=== PATIENT | male | born 1945 | race Caucasian/White ===

== ENCOUNTER → 2016-03-13 | Outpatient (CLI) | payer MEDICARE ==
--- NOTE | 2016-03-13 17:06 | REP ---
LEFT RIB SERIES: Five views of the left ribs are performed. No fracture or bone lesion is seen. Visualized left lung appears unremarkable. There are mild degenerative changes at the left shoulder. IMPRESSION: Negative left rib series.
== END ==
LOC: M CLY 13:07
PROVIDERS: ATTEND Family Medicine
DX: J45.40 Moderate persistent asthma, uncomplicated (principal); Z79.82 Long term (current) use of aspirin; Z79.899 Other long term (current) drug therapy; R23.8 Other skin changes

== ENCOUNTER → 2016-03-13 | Outpatient (REF) | payer MEDICARE ==
[2016-03-13 18:24] LABS: BASO % 0.4 % (0.0-1.0); EOS # 0.4 K/mm3 (0.0-0.50); EOS % 4.5 % (0.0-3.0); LARGE UNSTAINED CELL # 0.1 K/mm3 (0.0-0.4); LARGE UNSTAINED CELL % 1.3 % (0.0-4.0); LYMPH # 1.7 K/mm3 (1.5-4.5); MEAN CORPUSCULAR HEMOGLOBIN 33.5 pg (27.0-33.0); MEAN CORPUSCULAR VOLUME 95.7 fl (80.0-96.0); MONO # 0.5 K/mm3 (0.0-0.8); MONO % 6.4 % (0.0-5.0); NEUTROPHILS # 5.3 K/mm3 (1.8-7.7); NEUTROPHILS % 66.5 % (36.0-66.0); PLATELET COUNT, AUTOMATED 185 k/mm3 (150-450); RED CELL DISTRIBUTION WIDTH 12.5 % (11.5-14.5)
[2016-03-13 18:34] LABS: ANION GAP 10 MEQ/L (8-16); BLOOD UREA NITROGEN 14 MG/DL (7-18); CALCIUM LEVEL 8.6 MG/DL (8.8-10.2); CARBON DIOXIDE LEVEL 30 MEQ/L (21-32); CHLORIDE LEVEL 101 MEQ/L (98-107); CREATININE FOR GFR 0.98 MG/DL (0.70-1.30); GLOMERULAR FILTRATION RATE > 60.0 (>42); GLUCOSE, FASTING 117 MG/DL (83-110); POTASSIUM SERUM 4.1 MEQ/L (3.5-5.1); SODIUM LEVEL 141 MEQ/L (136-145)
[2016-03-13 18:36] LABS: INR 1.2
== END ==
LOC: M SFHCCLAY 11:33
PROVIDERS: ATTEND Family Medicine
DX: J45.40 Moderate persistent asthma, uncomplicated (principal); R23.8 Other skin changes; Z79.82 Long term (current) use of aspirin; Z79.899 Other long term (current) drug therapy

== ENCOUNTER → 2016-07-10 | Outpatient (CLI) | payer MEDICARE ==
--- NOTE | 2016-07-10 15:10 | REP ---
LEFT HIP, TWO VIEWS: HISTORY: Pain/ COMPARISON: 07/02/2011 There is no acute fracture or dislocation. There is narrowing of the joint space with associated osteophyte formation. A calcified density is present lateral to the inferior pubic ramus. This represents ligamentous or tendon calcification. IMPRESSION: Degenerative change as described above.
== END ==
LOC: M CLY 14:07
PROVIDERS: ATTEND Family Medicine
DX: M16.12 Unilateral primary osteoarthritis, left hip (principal); M25.552 Pain in left hip; N62 Hypertrophy of breast; M54.42 Lumbago with sciatica, left side; Z79.82 Long term (current) use of aspirin; Z79.899 Other long term (current) drug therapy

== ENCOUNTER → 2016-07-10 | Outpatient (REF) | payer MEDICARE ==
[2016-07-10 20:15] LABS: PROLACTIN 6.5 NG/ML (2.1-17.7)
== END ==
LOC: M SFHCCLAY 13:47
PROVIDERS: ATTEND Family Medicine
DX: N62 Hypertrophy of breast (principal); Z79.899 Other long term (current) drug therapy

== ENCOUNTER → 2016-07-11 | Outpatient (CLI) | payer MEDICARE ==
--- NOTE | 2016-07-11 16:00 | REP ---
MR LUMBAR SPINE WITHOUT CONTRAST: HISTORY: Back and left hip pain. Decreased signal intensity on T2-weighted images is present in the lumbar intervertebral discs. The discs are decreased in height. These findings are consistent with disc degeneration. There is no disc bulge or herniation at the L1-2 level. The L1 nerves exit the neural foramina without compression. A diffuse disc bulge is present at the L2-3 level. There is minimal compression of the thecal sac. There is hypertrophy of the posterior articulating facets. The L2 nerves exit the neural foramina without compression. A diffuse disc bugle is present at the L3-4 level. There is minimal compression of the thecal sac. There is hypertrophy of the posterior articulating facets. The L3 nerves exit the neural foramina without compression. A diffuse disc bulge asymmetric to the left is present at the L4-5 level. There is minimal compression of the thecal sac. There is hypertrophy of the posterior articulating facets. There is compression of the L4 nerves in the neural foramina. A diffuse disc bulge is present at the L5-S1 level. There is minimal compression of the thecal sac. There is hypertrophy of the posterior articulating facets. There is compression of the L5 nerves in the neural foramina. The conus medullaris is normal in appearance terminating at the level of the T12-L1 intervertebral disc. Increased signal intensity on T2-weighted images is present in the endplates of the L3-5 vertebral bodies. This represents degenerative change. IMPRESSION: Diffuse disc bulges at the L2-3 through L5-S1 levels with minimal thecal sac compression. There is compression of the L4 and 5 nerves in the neural foramina. Signed by Sriram Mahan MD 07/11/2016 04:02 P
== END ==
LOC: M RAD 14:19
PROVIDERS: ATTEND Family Medicine
DX: M54.5 Low back pain (principal)

== ENCOUNTER → 2016-07-12 | Outpatient (CLI) | payer MEDICARE ==
--- NOTE | 2016-07-12 13:15 | REP ---
BILATERAL MAMMOGRAM WITH DIAGNOSTIC MAMMOGRAM LEFT BREAST: Bilateral mammography performed in the MLO and CC projections. There is pain and palpable abnormality in the left retroareolar region. Mild asymmetric fibroglandular tissue is seen in the left retroareolar region compatible with mild gynecomastia. No suspicious mass or clustered microcalcifications are seen. IMPRESSION: ACR 2 benign. Mild gynecomastia left retroareolar region without suspicious mass or clustered microcalcifications. Clinical correlation and followup recommended. ACR 2 benign. BI-RADS/ACR category 2 mammogram. Benign finding(s). Routine annual screening mammography (for women over age 40). This mammogram was interpreted with the aid of an FDA-approved computer-aided detection system. A. Negative x-ray reports should not delay biopsy if a dominant or clinically suspicious mass is present. B. Four to eight percent of cancers are not identified by x-ray. C. Adenosis and dense breasts may obscure an underlying neoplasm. The patient states she had a clinical breast exam in July 2016. The patient letter being requested is M2. Signed by Tucker Gonzalez MD 07/13/2016 05:12 P
== END ==
LOC: M RAD 11:53
PROVIDERS: ATTEND Family Medicine
DX: N62 Hypertrophy of breast (principal)

== ENCOUNTER 2016-07-26 12:59 | Emergency (ER) | payer MEDICARE ==
[~2016-07-26] VITALS: Ht 170.2 cm; Wt 106.6 kg
[2016-07-26] MEDS ORDERED: LATA5OPD (13:09)
[2016-07-26] MEDS ORDERED: LOSA100T36 (13:09)
[2016-07-26] MEDS ORDERED: ETOD400T (13:09)
[2016-07-26] MEDS ORDERED: HYDR25TA6 (13:09)
[2016-07-26] MEDS ORDERED: ATOR1TAB21 (13:09)
[2016-07-26] MEDS ORDERED: ESCI20TA (13:09)
[2016-07-26] MEDS ORDERED: AMLO5TAB2 (13:09)
[2016-07-26] MEDS ORDERED: TRIMETHOBENZAMIDE HCL INJ 200 MG/2 ML VIAL (J3250) IM ONE (13:45)
[2016-07-26] MEDS ORDERED: KETOROLAC 30 MG/ML VIAL (J1885) IV ONE (13:45)
[2016-07-26] MEDS ORDERED: GASTROGRAFIN SOLUTION 30ML (Q9963) As Ordered ONE (14:02)
[2016-07-26 14:53] LABS: BASO # 0.1 K/mm3 (0.0-0.2); BASO % 0.7 % (0.0-1.0); EOS # 0.1 K/mm3 (0.0-0.50); EOS % 1.6 % (0.0-3.0); LARGE UNSTAINED CELL # 0.1 K/mm3 (0.0-0.4); LARGE UNSTAINED CELL % 0.9 % (0.0-4.0); LYMPH # 1.3 K/mm3 (1.5-4.5); LYMPH % 14.3 % (24.0-44.0); MEAN CORPUSCULAR HEMOGLOBIN 32.4 pg (27.0-33.0); MEAN CORPUSCULAR HGB CONC 33.7 g/dl (32.0-36.5); MEAN CORPUSCULAR VOLUME 96.2 fl (80.0-96.0); MONO # 0.5 K/mm3 (0.0-0.8); MONO % 5.3 % (0.0-5.0); NEUTROPHILS # 6.8 K/mm3 (1.8-7.7); NEUTROPHILS % 77.1 % (36.0-66.0); PLATELET COUNT, AUTOMATED 163 k/mm3 (150-450); RED CELL DISTRIBUTION WIDTH 13.2 % (11.5-14.5); WHITE BLOOD COUNT 8.8 K/mm3 (4.0-10.0)
[2016-07-26 15:17] LABS: ALBUMIN 3.7 GM/DL (3.2-5.2); ALBUMIN/GLOBULIN RATIO 1.23 (1.00-1.93); ALKALINE PHOSPHATASE 81 U/L (45-117); ALT/SGPT 44 U/L (12-78); AMYLASE 45 U/L (25-115); ANION GAP 6 MEQ/L (8-16); AST/SGOT 34 U/L (15-37); BILIRUBIN,DIRECT 0.3 MG/DL (0.0-0.2); BILIRUBIN,TOTAL 0.9 MG/DL (0.2-1.0); BLOOD UREA NITROGEN 19 MG/DL (7-18); CALCIUM LEVEL 8.5 MG/DL (8.8-10.2); CARBON DIOXIDE LEVEL 29 MEQ/L (21-32); CHLORIDE LEVEL 104 MEQ/L (98-107); CREATININE FOR GFR 0.89 MG/DL (0.70-1.30); GLOMERULAR FILTRATION RATE > 60.0 (>42); GLUCOSE, FASTING 114 MG/DL (83-110); POTASSIUM SERUM 3.9 MEQ/L (3.5-5.1); SODIUM LEVEL 139 MEQ/L (136-145); TOTAL PROTEIN 6.7 GM/DL (6.4-8.2)
[2016-07-26] MEDS ORDERED: ISOVUE-370 76% 100ML VIAL (Q9967) As Ordered ONE (15:33)
--- NOTE | 2016-07-26 16:30 | REP ---
Clinical: Right-sided abdominal pain. Technique: Axial contrast enhanced images from the lung bases to the pubic symphysis using oral and 100 ml Isovue 370 intravenous contrast material with coronal and sagittal re-formations. Findings: Lung bases are clear. Visualized heart and pericardium normal. Fatty infiltration to the liver is appreciated with 3 cm hypodensity along the posterior margin of the right lobe (image 31) which may represent cyst. Spleen, pancreas, gallbladder, bilateral adrenal glands are normal. The kidneys demonstrate small bilateral parapelvic and cortical cysts. The enteric system is without obstruction or acute inflammatory process. Scattered diverticulosis noted without acute diverticulitis. Normal terminal ileum and appendix identified in the right lower quadrant. Pelvis demonstrates normal bladder and mildly prominent prostate gland measuring approximately 4.5 cm maximal transverse diameter. Small fat containing right inguinal hernia noted. Musculoskeletal structures demonstrate age-related degenerative changes without focal osseous abnormality. Impression: 1. Fatty infiltration to the liver with 3 cm presumed hepatic cyst may be evaluated by ultrasound. 2. Diverticulosis without acute diverticulitis. 3. Mildly prominent prostate gland. 4. Degenerative changes the musculoskeletal structures. Signed by Deangelo Hyatt MD 07/26/2016 04:22 P
--- NOTE | 2016-07-26 17:40 | REP ---
Abdominal right upper quadrant ultrasound for right upper quadrant pain: There is no cholelithiasis, gallbladder wall thickening or pericholecystic fluid. There is a negative Valenzuela's sign to transducer pressure. There is no intrahepatic or extrahepatic biliary duct dilatation, the common duct is 4.3 mm diameter. The hepatic parenchyma is hyperechoic compatible with hepato steatosis. The liver is otherwise unremarkable except for a 4.1 cm cyst posteriorly in the right lobe. The pancreas is obscured by bowel gas and not visualized. The right kidney is normal size measuring 11.5 cm craniocaudad length. There is no right renal hydronephrosis, calculus or mass. There is a 1.2 cm right renal cyst. Impression: Hepato steatosis. No cholelithiasis or gallbladder wall thickening. No biliary duct dilatation. No ascites. Pancreas is obscured. Right renal cyst. Signed by Tucker Agarwal MD 07/26/2016 05:31 P
[2016-07-26] MEDS ORDERED: NORCOTAB PO (17:52)
[2016-07-26 18:13] VITALS: BP 186/100
== END 2016-07-26 18:40 | disposition home or self-care (01) ==
LOC: M ED 14:22
DX: N28.1 Cyst of kidney, acquired (principal); K76.0 Fatty (change of) liver, not elsewhere classified; K57.90 Diverticulosis of intestine, part unspecified, without perforation or abscess without bleeding; R10.31 Right lower quadrant pain; I10 Essential (primary) hypertension; F32.9 Major depressive disorder, single episode, unspecified; M48.00 Spinal stenosis, site unspecified; Z79.899 Other long term (current) drug therapy
CPT/HCPCS: 74177; 76705; 80048; 80076; 81001; 82150; 83605; 83690; 85025; 86140; 96372; 96374; 99283; J1885; J3250; Q9963; Q9967

== ENCOUNTER → 2016-08-15 | Outpatient (REF) | payer MEDICARE ==
[~2016-08-15] MED LIST: AMLO5TAB2; ATOR1TAB21; ESCI20TA; ETOD400T; HYDR25TA6; LATA5OPD; LOSA100T36; NORCOTAB PO
[2016-08-15 11:47] LABS: ALBUMIN 3.7 GM/DL (3.2-5.2); ALBUMIN/GLOBULIN RATIO 1.23 (1.00-1.93); ALKALINE PHOSPHATASE 85 U/L (45-117); ALT/SGPT 49 U/L (12-78); ANION GAP 7 MEQ/L (8-16); AST/SGOT 31 U/L (15-37); BILIRUBIN,TOTAL 0.9 MG/DL (0.2-1.0); BLOOD UREA NITROGEN 14 MG/DL (7-18); CALCIUM LEVEL 8.8 MG/DL (8.8-10.2); CARBON DIOXIDE LEVEL 29 MEQ/L (21-32); CHLORIDE LEVEL 104 MEQ/L (98-107); CHOLESTEROL LEVEL 161 MG/DL (<200); CREATININE FOR GFR 0.93 MG/DL (0.70-1.30); GLOMERULAR FILTRATION RATE > 60.0 (>42); GLUCOSE, FASTING 111 MG/DL (83-110); POTASSIUM SERUM 3.8 MEQ/L (3.5-5.1); SODIUM LEVEL 140 MEQ/L (136-145); TOTAL PROTEIN 6.7 GM/DL (6.4-8.2); TRIGLYCERIDES LEVEL 126 MG/DL (<150)
== END ==
LOC: M SFHCCLAY 08:07
PROVIDERS: ATTEND Family Medicine
DX: E78.00 Pure hypercholesterolemia, unspecified (principal)

== ENCOUNTER → 2017-10-30 | Outpatient (REF) | payer MEDICARE ==
[2017-10-30 11:32] LABS: HEMATOCRIT 44.1 % (42.0-52.0); HEMOGLOBIN 15.6 g/dl (13.5-17.5); MEAN CORPUSCULAR HEMOGLOBIN 33.3 pg (27.0-33.0); MEAN CORPUSCULAR HGB CONC 35.4 g/dl (32.0-36.5); MEAN CORPUSCULAR VOLUME 94.2 fl (80.0-96.0); PLATELET COUNT, AUTOMATED 173 10^3/uL (150-450); RED BLOOD COUNT 4.68 10^6/uL (4.30-6.10); RED CELL DISTRIBUTION WIDTH 12.5 % (11.5-14.5); WHITE BLOOD COUNT 6.6 10^3/uL (4.0-10.0)
[2017-10-30 12:24] LABS: ESTIMATED AVERAGE GLUCOSE 114 MG/DL (60-110); HEMOGLOBIN A1c 5.6 %
[2017-10-30 12:25] LABS: ALKALINE PHOSPHATASE 86 U/L (45-117); ALT/SGPT 43 U/L (12-78); AST/SGOT 27 U/L (7-37); BILIRUBIN,TOTAL 0.7 MG/DL (0.2-1.0); BLOOD UREA NITROGEN 20 MG/DL (7-18); CALCIUM LEVEL 8.7 MG/DL (8.8-10.2); CHLORIDE LEVEL 103 MEQ/L (98-107); CHOLESTEROL LEVEL 159 MG/DL (<200); CREATININE FOR GFR 0.96 MG/DL (0.70-1.30); POTASSIUM SERUM 4.2 MEQ/L (3.5-5.1); SODIUM LEVEL 140 MEQ/L (136-145); TOTAL PROTEIN 6.8 GM/DL (6.4-8.2); TRIGLYCERIDES LEVEL 94 MG/DL (<150)
[2017-10-30 12:38] LABS: GLUCOSE, FASTING 122 MG/DL (70-100)
[2017-10-30 15:44] LABS: ANION GAP 7 MEQ/L (8-16); CARBON DIOXIDE LEVEL 30 MEQ/L (21-32); HDL CHOLESTEROL 58 MG/DL (>40); LDL CHOLESTEROL 82.2 MG/DL (<100); NON-HDL-C 101 MG/DL
[2017-10-30 15:45] LABS: ALBUMIN 3.6 GM/DL (3.2-5.2); ALBUMIN/GLOBULIN RATIO 1.13 (1.00-1.93); CHOLESTEROL RISK RATIO 2.741 (<5)
== END ==
LOC: M SFHCCLAY 09:17
DX: I10 Essential (primary) hypertension (principal); J45.40 Moderate persistent asthma, uncomplicated; G47.33 Obstructive sleep apnea (adult) (pediatric); I35.0 Nonrheumatic aortic (valve) stenosis
CPT/HCPCS: 84443

== ENCOUNTER → 2018-08-22 | Outpatient (CLI) | payer MEDICARE ==
[~2018-08-22] MED LIST changes: -AMLO5TAB2; +AMLO5TAB6; +HYDR-3715 PO; +LATA0.0013; -LATA5OPD; -LOSA100T36; +LOSA100T50; -NORCOTAB PO
--- NOTE | 2018-08-22 13:50 | REP ---
Left foot series: Four views. History: Pain in the left foot. Findings: Four views of the left foot demonstrate a moderate hallux valgus with mild osteoarthritic spurring. Mild spurring is seen at the first MTP joint as well. There is plantar calcaneal spurring. Vascular calcification is seen across the ankle in the anterior posterior tibial arteries. No acute bony abnormality is seen however. No fractures seen. Impression: Osteoarthritic changes in hallux valgus. Heel spurring and vascular calcification. No acute abnormality. Electronically Signed by Cesar Constantino MD 08/22/2018 01:42 P
--- NOTE | 2018-08-22 13:52 | REP ---
Right knee series: Five views. History: Pain in the right knee. Findings: Five views right knee demonstrate vascular calcification. There is patellofemoral narrowing and spurring. There is some dystrophic calcification at the posterior joint line on the lateral radiograph and I cannot exclude a small loose body. No bony erosive changes seen. There is no evidence of joint effusion. Impression: Mild osteoarthritic changes. Vascular calcification. Question posteromedial loose body. Electronically Signed by Cesar Constantino MD 08/22/2018 01:43 P
== END ==
LOC: M CLY 07:49
PROVIDERS: ATTEND Family Medicine
DX: M77.32 Calcaneal spur, left foot (principal); M19.072 Primary osteoarthritis, left ankle and foot; M17.11 Unilateral primary osteoarthritis, right knee

== ENCOUNTER → 2018-08-22 | Outpatient (REF) | payer MEDICARE ==
[2018-08-22 12:55] LABS: HEMOGLOBIN 15.5 g/dl (13.5-17.5); MEAN CORPUSCULAR HEMOGLOBIN 32.6 pg (27.0-33.0); MEAN CORPUSCULAR HGB CONC 34.4 g/dl (32.0-36.5); MEAN CORPUSCULAR VOLUME 94.7 fl (80.0-96.0); PLATELET COUNT, AUTOMATED 164 10^3/uL (150-450); RED BLOOD COUNT 4.75 10^6/uL (4.30-6.10); WHITE BLOOD COUNT 6.6 10^3/uL (4.0-10.0)
[2018-08-22 13:10] LABS: ALBUMIN 3.7 GM/DL (3.2-5.2); ALT/SGPT 40 U/L (12-78); BILIRUBIN,TOTAL 0.4 MG/DL (0.2-1.0); BLOOD UREA NITROGEN 16 MG/DL (7-18); CALCIUM LEVEL 8.7 MG/DL (8.8-10.2); CARBON DIOXIDE LEVEL 29 MEQ/L (21-32); CHLORIDE LEVEL 105 MEQ/L (98-107); CHOLESTEROL LEVEL 160 MG/DL (<200); CHOLESTEROL RISK RATIO 2.711 (<5); CREATININE FOR GFR 1.03 MG/DL (0.70-1.30); FREE T4 0.79 NG/DL (0.76-1.46); GLOMERULAR FILTRATION RATE > 60.0 (>42); GLUCOSE, FASTING 126 MG/DL (70-100); HDL CHOLESTEROL 59 MG/DL (>40); LDL CHOLESTEROL 82 MG/DL (<100); NON-HDL-C 101 MG/DL; POTASSIUM SERUM 4.1 MEQ/L (3.5-5.1); SODIUM LEVEL 139 MEQ/L (136-145); TOTAL PROTEIN 6.5 GM/DL (6.4-8.2); TRIGLYCERIDES LEVEL 95 MG/DL (<150)
== END ==
LOC: M SFHCCLAY 07:44
PROVIDERS: ATTEND Family Medicine
DX: I10 Essential (primary) hypertension (principal)

== ENCOUNTER → 2019-05-06 | Outpatient (REF) | payer MEDICARE ==
[2019-05-06 12:13] LABS: ALBUMIN 3.7 GM/DL (3.2-5.2); ALT/SGPT 36 U/L (12-78); BILIRUBIN,TOTAL 0.5 MG/DL (0.2-1.0); BLOOD UREA NITROGEN 23 MG/DL (7-18); CALCIUM LEVEL 8.9 MG/DL (8.8-10.2); CARBON DIOXIDE LEVEL 31 MEQ/L (21-32); CHLORIDE LEVEL 106 MEQ/L (98-107); CREATININE FOR GFR 1.12 MG/DL (0.70-1.30); FREE T4 0.85 NG/DL (0.76-1.46); GLOMERULAR FILTRATION RATE > 60.0 (>42); GLUCOSE, FASTING 120 MG/DL (70-100); POTASSIUM SERUM 3.5 MEQ/L (3.5-5.1); SODIUM LEVEL 142 MEQ/L (136-145); TOTAL PROTEIN 6.4 GM/DL (6.4-8.2)
[2019-05-06 12:34] LABS: HEMOGLOBIN A1c 5.8 %
== END ==
LOC: M SFHCCLAY 07:53
PROVIDERS: ATTEND Family Medicine
DX: R73.01 Impaired fasting glucose (principal); I10 Essential (primary) hypertension

== ENCOUNTER → 2019-12-21 | Outpatient (REF) | payer MEDICARE ==
[~2019-12-21] MED LIST changes: +AMLO1TAB24; -AMLO5TAB6
== END ==
LOC: M SFHCCLAY 12:44
PROVIDERS: ATTEND Physician Assistant
DX: R50.9 Fever, unspecified (principal); Z20.828 Contact with and (suspected) exposure to other viral communicable diseases

== ENCOUNTER → 2019-12-22 | Outpatient (CLI) | payer MEDICARE ==
--- NOTE | 2019-12-25 08:53 | REP ---
CHEST XRAY: 12/22/19 CLINICAL: Cough and hypoxemia. TECHNIQUE: PA and lateral. FINDINGS: Mediastinum and cardiac silhouette are normal. Lung ibrahim are clear. No consolidation, effusion, or pneumothorax. Skeletal structures are intact. IMPRESSION: Normal chest x-ray. No acute cardiopulmonary process or focal consolidation. MTDD
--- NOTE | 2019-12-25 08:55 | REP ---
LEFT RIB SERIES: 12/22/19 CLINICAL: Traumatic injury and tenderness. TECHNIQUE: Four oblique views of the left hemithorax. FINDINGS: The ribs appear intact and without evidence for acute fracture or obvious pathology. Underlying left hemithorax is clear. Degenerative changes to the left shoulder noted. IMPRESSION: Normal left ribs without evidence for acute injury. [facility]
== END ==
LOC: M CLY 10:55
PROVIDERS: ATTEND Physician Assistant
DX: R50.9 Fever, unspecified (principal); S29.9XXA Unspecified injury of thorax, initial encounter; X58.XXXA Exposure to other specified factors, initial encounter; Y92.9 Unspecified place or not applicable

== ENCOUNTER → 2020-02-10 | Outpatient (REF) | payer MEDICARE | LOC: M SFHCCLAY 10:29 | PROVIDERS: ATTEND Family Medicine | DX: N39.41 Urge incontinence (principal); I35.0 Nonrheumatic aortic (valve) stenosis; G47.33 Obstructive sleep apnea (adult) (pediatric) ==

== ENCOUNTER → 2020-02-15 | Outpatient (REF) | payer MEDICARE ==
[2020-02-15 11:39] LABS: APPEARANCE, URINE HAZY (CLEAR); BACTERIA, URINE AUTO NEGATIVE (NEGATIVE); BILIRUBIN, URINE AUTO NEGATIVE (NEGATIVE); BLOOD, URINE BLOOD NEGATIVE (NEGATIVE); COLOR, URINE YELLOW (YELLOW); GLUCOSE, URINE (UA) AUTO NEGATIVE (NEGATIVE); KETONE, URINE AUTO NEGATIVE (NEGATIVE); LEUKOCYTE ESTERASE, URINE AUTO NEGATIVE (NEGATIVE); MUCUS, URINE SMALL (NEGATIVE); NITRITE, URINE AUTO NEGATIVE (NEGATIVE); PROTEIN, URINE AUTO NEGATIVE (NEGATIVE); RBC, URINE AUTO 1 /HPF (0-3); SQUAMOUS EPITHELIAL CELL UR AU 0 /HPF (0-6); UROBILINOGEN, URINE AUTO 0.2 mg/dL (0.0-2.0); WBC, URINE AUTO 1 /HPF (0-3)
[2020-02-15 12:14] LABS: ALBUMIN 3.7 GM/DL (3.2-5.2); ALT/SGPT 40 U/L (12-78); BILIRUBIN,TOTAL 0.7 MG/DL (0.2-1.0); BLOOD UREA NITROGEN 19 MG/DL (7-18); CALCIUM LEVEL 8.8 MG/DL (8.8-10.2); CARBON DIOXIDE LEVEL 32 MEQ/L (21-32); CHLORIDE LEVEL 103 MEQ/L (98-107); CHOLESTEROL LEVEL 142 MG/DL (<200); CHOLESTEROL RISK RATIO 2.784 (<5); CREATININE FOR GFR 1.13 MG/DL (0.70-1.30); GLOMERULAR FILTRATION RATE > 60.0 (>42); GLUCOSE, FASTING 117 MG/DL (70-100); HDL CHOLESTEROL 51 MG/DL (>40); LDL CHOLESTEROL 69 MG/DL (<100); NON-HDL-C 91 MG/DL; POTASSIUM SERUM 3.4 MEQ/L (3.5-5.1); SODIUM LEVEL 139 MEQ/L (136-145); TOTAL PROTEIN 6.7 GM/DL (6.4-8.2); TRIGLYCERIDES LEVEL 110 MG/DL (<150); URIC ACID 6.5 MG/DL (3.5-7.2)
== END ==
LOC: M SFHCCLAY 08:54
PROVIDERS: ATTEND Family Medicine
DX: N39.41 Urge incontinence (principal); I35.0 Nonrheumatic aortic (valve) stenosis; G47.33 Obstructive sleep apnea (adult) (pediatric); E07.9 Disorder of thyroid, unspecified; E78.00 Pure hypercholesterolemia, unspecified

== ENCOUNTER → 2020-03-19 | Outpatient (CLI) | payer MEDICARE ==
[~2020-03-19] MED LIST changes: +AMLO1TAB24 PO; +ASPI81TA26 PO; +ATOR1TAB21 PO; +CHLO25TA PO; +ESCI5SOL3 PO; +GLUC1CAP10 PO; +LOSA100T50 PO; +NO ITAB PO; +PROAAER10 INH; +XALA0.007 OU; +areds PO
== END ==
LOC: M LABSMTC 09:32
PROVIDERS: ATTEND Anesthesiology
DX: Z01.812 Encounter for preprocedural laboratory examination (principal); Z20.822 Contact with and (suspected) exposure to COVID-19

== ENCOUNTER 2020-03-24 08:34 | Day surgery (SDC) | payer MEDICARE ==
[~2020-03-24] VITALS: Ht 167.6 cm; Wt 110.2 kg
[~2020-03-24 08:34] MED LIST changes: -ESCI20TA; +ESCI20TA16; +LIDOCAINE 2% 100MG/5ML SDV (FOR ANES.) As Ordered ONE; +NS 1,000 ML IV ONE; +propofoL 200 MG/20 ML VIAL As Ordered ONE
--- OUTSIDE RECORDS SUMMARY | 2020-03-24 08:53 | CCD ---
Author Author [facility] Organization [facility] Address Unknown Phone Unavailable Care Team Providers Care Nonfarm Animal Caretaker Name Role Phone Alireza Lara Unavailable PROBLEMS Type Condition ICD9-CM Code LES45-XV Code Onset Dates Condition S tatus SNOMED Code Notes Problem Essential hypertension I10 Active 10982076 Problem Moderate persistent asthma without complication J4 5.40 Active 929251565 Problem Sinusitis, unspecified chronicity, unspecified location J32.9 Active 19797169 Problem BMI 38.0-38.9,adult Z68.38 Active 635606947 Problem THU (obstructive sleep apnea) G47.33 Active 78 436758 Problem Mild aortic stenosis I35.0 Active 65682702 Problem Reactive depression F32.9 Active 48754147 Problem Encounter for immunization Z23 Active 05439 8001 Problem Abdominal wall pain in left lower quadrant R10.32 Active 821651990 Problem Primary osteoarthritis of right knee M17.11 Act valerio 529506681 Problem Screening for colon cancer Z12.11 Active 74146 8001 Problem Other chronic pain G89.29 Active 50452872 Problem Impingement syndrome of right shoulder M75.41 Active 825145925045398 Problem Lumbago with sciatica, right side M54.41 Active 694487540 Problem Mild persistent asthma, unspecified whether complicated J45.30 Active 687639976 Problem Glaucoma of both eyes, unspecified glaucoma type H 40.9 Active 64465803 Problem Erectile dysfunction, unspecified erectile dysfunction typ e N52.9 Active 692112640 Problem Urge incontinence N39.41 Active 92071324 ALLERGIES No Known Allergies ENCOUNTERS from 1945 to 2020-03-19 Encounter Location Date Provider Diagnosis [facility] [address] [id number] 08 Mar, 2020 Alireza Lara Pre-op exam Z01.818 ; THU (obstructive sleep apnea) G47.33 ; Essential hypertension I10 ; Screening for colon cancer Z12.11 and Impingement syndrome of right shoulder M75.41 IMMUNIZATIONS Vaccine Route Administration Date Status Influenza (18 yrs & older) Flublok Unknown Dec 11, 2018 Administered Influenza (18 yrs & older) Flublok IM Intramuscular Jan 10, 2018 Administered Influenza (High Dose 65 & up) IM Intramuscular Jan 09, 2017 A dministered Influenza (High Dose 65 & up) Unknown Dec 19, 2015 Ad ministered Influenza (High Dose 65 & up) IM Intramuscular Dec 03, 2014 A dministered Hepatitis A Adult 1.0mL (Havrix) IM Intramuscular June 03, 2014 Administered Influenza (Pharmacy Given) Unknown Dec 03, 2019 Admin istered Zoster 0.65mL (Zostavax) Unknown Apr 21, 2013 Adminis tered Pneumococcal 0.5mL (Prevnar 13) IM Intramuscular Dec 03, 2014 Administered Influenza (6mo & up) Fluzone IM Intramuscular Jan 26, 2010 Ad ministered SOCIAL HISTORY Tobacco Use: Social History Observation Description Date Details (start date - stop date) Former Smoker Sex Assigned At : Social History Observation Description Sex Assigned At Unknown Audit Question Answer Notes Total Score: 1 Interpretation: Alcohol Education Sexual Hx: Question Answer Notes Had sex in the last 12 months (vaginal, oral, or anal)? Yes Have you ever had an STD? No with Women only Use protection? No Drug and Alcohol Question Answer Notes Total Score: 0 Interpretation: No problems reported Alcohol Screening: Question Answer Notes Did you have a drink containing alcohol in the past year? Ye s Points 5 Interpretation Positive How often did you have six or more drinks on one occas ion in the past year? Less than monthly (1 point) How many drinks did you have on a typica l day when you were drinking in the past year? 3 or 4 (1 point) How often did you have a drink containing alcohol in t he past year? Two to three times per week (3 points) BMI Care Goal Follow-Up Question Answer Notes Above Normal BMI Follow-Up Dietary needs education Tobacco Use: Question Answer Notes Are you a: former smoker former smoker quit 1 992 Additional Findings: Tobacco User none Additional Findings: Tobacco Non-User no ne How long has it been since you last smoked? > 10 years updated 03/18/2020 REASON FOR REFERRAL No Information VITAL SIGNS Weight 247 lbs Mar, Height 5'6 1/2" in Mar, BMI 39.27 kg/m2 Mar, Heart Rate 18 /min Mar, Respiratory Rate 98 /min Mar, Temperature 97.8 degrees Fahrenheit Mar, Oximetry 97RA Mar, Blood pressure systolic 136 mm Hg Mar, Blood pressure diastolic 83 mm Hg Mar, MEDICATIONS Medication SIG (Take, Route, Frequency, Duration) Notes Start Da te End Date Status Atorvastatin Calcium 20 MG TAKE ONE TABLET BY MOUTH ONCE A DAY Active Lumigan 0.01 % 1 drop into affected eye in the evening Ophthalm ic Once a day Active Losartan Potassium 100 MG 1 tablet Orally Once a day Active Ventolin HFA 108 (90 Base) MCG/ACT 2 puffs as needed I nhalation four times daily as needed for 90 day(s) Dec, Active Aspirin 81 MG 1 tab(s) p.o. daily Ac tive Amlodipine Besylate 5 MG TAKE ONE TABLET BY MOUTH DAILY Active Chlorthalidone 25 MG 1 tablet in the morning with food Orally On a Jan, Active Multivitamins 0 1 tab(s) p.o. daily Active Vitamin D 2000 units 1 tab(s) p.o. daily Active CPAP mask 9 cm H2O pressure mask qhs Mar, Active Albuterol Sulfate HFA 108 (90 Base) MCG/ACT 1 puff as needed Inhalation every 4 hrs Active Lfkmqd-Lghayadji-Xrcnuy-Hyal - 1 cap Orally Daily Active CPAP Machine 9 cm H2O qhs Mar, Active Sildenafil Citrate 100 MG 1 tablet as needed Orally Once a day Jan, Active Escitalopram Oxalate 5 MG 1 tablet Orally Once a day Active PROCEDURES No Information RESULTS No Results REASON FOR VISIT preop dr kendrick colonscopy and inguinal hernia repair no testing needed. MEDICAL (GENERAL) HISTORY Type Description Date Medical History HTN Medical History HYPERCHOLESTEROLEMIA Medical History OA Medical History zostavax @ [facility] 04/21/2013 Medical History Spirometry 08/15/2016 Surgical History HERNIA REPAIR LEFT Surgical History DEVATED SEPTUM Surgical History PINS IN SHOULDER RUPTURED BICEP Surgical History T&A Surgical History vasectomy Surgical History nerve block september and nov 2011 Surgical History right inguinal hernia repair/right hydro nessa May Surgical History Right scrotal hematoma August Surgical History colonoscopy 2011 Surgical History Root canal 09/19/15 Hospitalization History surgery related Goals Section No Information Health Concerns No Information MEDICAL EQUIPMENT No Information MENTAL STATUS No Information FUNCTIONAL STATUS No Information ASSESSMENTS Encounter Date Diagnosis Assessment Notes Treatment Notes Treatm ent Clinical Notes Mar, Pre-op exam (ICD-10 - Z01.818) 1. Urgency of the surgery: elective 2. Active Cardiac Conditions: none 3. Surgery-specific risk: low 4: Patient's functional capacity: at least 4 METS based on described activity 5: Clinical risk factors: per RCRI none, therefore he should be a suitable candidate to proceed to the OR without additional testing. Recommendation: On am of procedure, don't take chlorthalidone and losartan. Others may also be delayed until after the procedure. He does have history of asthma so albuterol neb on hand is reasonable. Close O2sat monitoring due to hx of THU. Mar, THU (obstructive sleep apnea) (ICD-10 - G47.33) Mar, Essential hypertension (ICD-10 - I10) Mar, Screening for colon cancer (ICD-10 - Z12.11) Mar, Impingement syndrome of right shoulder (ICD-10 - M75.41) PLAN OF TREATMENT Medication Medication Name Sig Start Date Stop Date Aspirin 81 MG 1 tab(s) p.o. daily CPAP Machine 9 cm H2O qhs Mar, CPAP mask 9 cm H2O pressure mask qhs Mar, Treatment Notes Assessment Notes Clinical Notes Pre-op exam 1. Urgency of the surgery: e lective2. Active Cardiac Conditions: none3. Surgery-specific risk: low4: Patient's functional capacity: at least 4 METS based on described activity5: Clinical risk factors: per RCRI none, therefore he should be a suitable candidate to proceed to the OR without additional testing.Recommendation: On am of procedure, don't take chlorthalidone and losartan. Others may also be delayed until after the procedure. He does have history of asthma so albuterol neb on hand is reasonable. Close O2sat monitoring due to hx of THU. Next Appt Details 6 Months Reason: Provider Name:Alireza Lara, 2020-08-11 09 :30:00 AM, [address], [place], [address], Insurance Providers Payer Name Payer Address Payer Phone Insured Name Patient Relati onship to Insured Coverage Start Date Coverage End Date MEDICARE BLUE O [address] [id number] DONTE FLOOD self 2012
--- OUTSIDE RECORDS SUMMARY | 2020-03-24 08:54 | CCD ---
Author Author [facility] Organization [facility] Address Unknown Phone Unavailable Care Team Providers Care Cabin Cleaner Name Role Phone LaraAlireza guzman Unavailable PROBLEMS Type Condition ICD9-CM Code ZMS11-AT Code Onset Dates Condition S tatus SNOMED Code Notes Problem Essential hypertension I10 Active 82075477 Problem Moderate persistent asthma without complication J4 5.40 Active 427611308 Problem Sinusitis, unspecified chronicity, unspecified location J32.9 Active 79784046 Problem BMI 38.0-38.9,adult Z68.38 Active 441710717 Problem THU (obstructive sleep apnea) G47.33 Active 78 813048 Problem Lumbago with sciatica, right side M54.41 Active 846215119 Problem Other chronic pain G89.29 Active 21270956 Problem Abdominal wall pain in left lower quadrant R10.32 Active 355666333 Problem Erectile dysfunction, unspecified erectile dysfunction typ e N52.9 Active 554057584 Problem Mild aortic stenosis I35.0 Active 41700776 Problem Urge incontinence N39.41 Active 08972986 Problem Reactive depression F32.9 Active 71166008 Problem Encounter for immunization Z23 Active 92218 8001 Problem Primary osteoarthritis of right knee M17.11 Act valerio 179221931 Problem Mild persistent asthma, unspecified whether complicated J45.30 Active 684109049 Problem Glaucoma of both eyes, unspecified glaucoma type H 40.9 Active 50960330 ALLERGIES No Known Allergies ENCOUNTERS from 1945 to 2020-02-13 Encounter Location Date Provider Diagnosis [facility] [address] [place] [address] Feb, Alireza Lara Urge incontinence N39.41 ; Annual physical exam Z00.00 ; Essential hypertension I10 ; Moderate persistent asthma without complication J45.40 ; Mild aortic stenosis I35.0 ; THU (obstructive sleep apnea) G47.33 ; Erectile dysfunction, unspecified erectile dysfunction type N52.9 ; Right inguinal hernia K40.90 and Encounter for general adult medical examination with abnormal findings Z00.01 IMMUNIZATIONS Vaccine Route Administration Date Status Influenza [...] Unknown Audit Question Answer Notes Total Score: 4 Interpretation: Alcohol Education Sexual Hx: Question Answer [...] you last smoked? > 10 years updated 02/10/2020 REASON FOR REFERRAL No Information VITAL SIGNS Weight 250 lbs Feb, Height 5'6 1/2" in Feb, BMI 39.74 kg/m2 Feb, Heart Rate 60 /min Feb, Respiratory Rate 18 /min Feb, Temperature 98 degrees Fahrenheit Feb, Oximetry 97RA Feb, Blood pressure systolic 126 mm Hg Feb, Blood pressure diastolic 84 mm Hg Feb, MEDICATIONS Medication SIG (Take, Route, Frequency, Duration) Notes Start Da te End Date Status Escitalopram Oxalate 5 MG 1 tablet Orally Once a day Active Doxycycline Monohydrate 100 MG 1 capsule Orally twice daily Dec, Not-Taking Ventolin HFA 108 (90 Base) MCG/ACT 2 puffs as needed I nhalation four times daily as needed for 90 day(s) Dec, Active Yolrlq-Kvoehasxj-Waivmp-Hyal - 1 cap Orally Daily Active PredniSONE 10 MG 4 tabs qday x 3, 3 tab qday x 3, 2 tabs qday x 3, 1 tab qday x 3 days Orally as directed for 12 days Dec, Not-Taking Sildenafil Citrate 100 MG 1 tablet as needed Orally Once a day Jan, Active Diclofenac Sodium 1 % 4 gm to large joints, 2 gm t o small joints Transdermal four times daily as needed Aug, Not-T aking Multivitamins 0 1 tab(s) p.o. daily Active Vitamin D 2000 units 1 tab(s) p.o. daily Active CPAP mask 9 cm H2O pressure mask qhs Mar, Active Tessalon Perles 100 MG 1 capsule as needed Orally T hree times a day for 10 day(s) Not-Taking Lumigan 0.01 % 1 drop into affected eye in the evening Ophthalm ic Once a day Active Aspirin 81 MG 1 tab(s) p.o. daily Ac tive Doxycycline Monohydrate 100 MG 1 capsule Orally Once a day for 10 day (s) Not-Taking Chlorthalidone 25 MG 1 tablet in the morning with food Orally On a day Jan, Active Losartan Potassium 100 MG 1 tablet Orally Once a day Active CPAP Machine 9 cm H2O qhs Mar, Active Atorvastatin Calcium 20 MG TAKE ONE TABLET BY MOUTH ONCE A DAY Active Amlodipine Besylate 5 MG TAKE ONE TABLET BY MOUTH DAILY Active PROCEDURES No Information RESULTS No Results REASON FOR VISIT annual wellness MEDICAL (GENERAL) HISTORY Type Description Date Medical History HTN Medical History HYPERCHOLESTEROLEMIA Medical History OA Medical History victorina durbin 04/21/2013 Medical History Spirometry 08/15/2016 Surgical History [...] Notes Treatment Notes Treatm ent Clinical Notes Feb, Urge incontinence (ICD-10 - N39.41) Feb, Annual physical exam (ICD-10 - Z00.00) Feb, Essential hypertension (ICD-10 - I10) Feb, Moderate persistent asthma without compl ication (ICD-10 - J45.40) Feb, Mild aortic stenosis (ICD-10 - I35.0) Feb, THU (obstructive sleep apnea) (ICD-10 - G47.33) Feb, Erectile dysfunction, unspec ified erectile dysfunction type (ICD-10 - N52.9) Feb, Right inguinal hernia (ICD-10 - K40.90) Feb, Encounter for general adult medical examination with abnormal findings (ICD-10 - Z00.01) PLAN OF TREATMENT Medication Medication Name Sig Start Date Stop Date CPAP mask 9 cm H2O pressure mask qhs Mar, CPAP Machine 9 cm H2O qhs Mar, Vitamin D 2000 units 1 tab(s) p.o. daily Multivitamins 0 1 tab(s) p.o. daily Lumigan 0.01 % 1 drop into affected eye in the evening Ophthalm ic Once a day Csxgro-Vifooayyd-Mgxwhx-Hyal - 1 cap Orally Daily Aspirin 81 MG 1 tab(s) p.o. daily Sildenafil Citrate 100 MG 1 tablet as needed Orally Once a day 2 Jan, Chlorthalidone 25 MG 1 tablet in the morning with food Orall y Once a day Jan, Atorvastatin Calcium 20 MG TAKE ONE TABLET BY MOUTH ONCE A DAY Losartan Potassium 100 MG 1 tablet Orally Once a day Escitalopram Oxalate 5 MG 1 tablet Orally Once a day Amlodipine Besylate 5 MG TAKE ONE TABLET BY MOUTH DAILY Ventolin HFA 108 (90 Base) MCG/ACT 2 puffs as needed I nhalation four times daily as needed for 90 day(s) Dec, Treatment Notes Test Name Order Date URIC ACID 2020-02-13 Comprehensive Metabolic Profile (CMP) 2020-02-13 LIPID PANEL (CARDIAC RISK) 2020-02-13 TSH 2020-02-13 UA URINALYSIS 2020-02-13 Next Appt Details 6 Months Reason: Provider Name:Alireza Lara, 2020-08-11 09 :30:00 AM, [address] , [place], [address], Insurance Providers Payer Name Payer Address Payer Phone Insured Name Patient Relati onship to Insured Coverage Start Date Coverage End Date MEDICARE BLUE PPO [address] [facility] BLUE [id number] [address] DONTE FLOOD self 2012
--- OUTSIDE RECORDS SUMMARY | 2020-03-24 08:54 | CCD ---
Author Author [facility] Organization [facility] Address Unknown Phone Unavailable Care Team Providers Care Web Consultant Name Role Phone LaraAlireza guzman Unavailable PROBLEMS Type Condition ICD9-CM Code [id number] Code Onset Dates Condition S tatus SNOMED Code Notes Problem Essential hypertension I10 Active 36912571 Problem Moderate persistent asthma without complication J4 5.40 Active 245040560 Problem Sinusitis, unspecified chronicity, unspecified location J32.9 Active 12266668 Problem BMI 38.0-38.9,adult Z68.38 Active 840134328 Problem THU (obstructive sleep apnea) G47.33 Active 78 717165 Problem Lumbago with sciatica, right side M54.41 Active 658149422 Problem Other chronic pain G89.29 Active 24217854 Problem Abdominal wall pain in left lower quadrant R10.32 Active 364452427 Problem Erectile dysfunction, unspecified erectile dysfunction typ e N52.9 Active 823558691 Problem Mild aortic stenosis I35.0 Active 99071313 Problem Urge incontinence N39.41 Active 82885844 Problem Reactive depression F32.9 Active 06007606 Problem Encounter for immunization Z23 Active 84650 8001 Problem Primary osteoarthritis of right knee M17.11 Act valerio 008800014 Problem Mild persistent asthma, unspecified whether complicated J45.30 Active 620175668 Problem Glaucoma of both eyes, unspecified glaucoma type H 40.9 Active 94214380 ALLERGIES No Known Allergies ENCOUNTERS from 1945 to 2020-03-01 Encounter Location Date Provider Diagnosis [address] [address] [place] [address] Feb, Alireza Lara IMMUNIZATIONS Vaccine Route Administration Date Status Influenza (High Dose 65 & up) IM Intramuscular Jan 09, 2017 A dministered Influenza (High Dose 65 & up) IM Intramuscular Dec 03, 2014 A dministered Influenza (Pharmacy Given) Unknown Dec 03, 2019 Admin istered Influenza (18 yrs & older) Flublok Unknown Dec 11, 2018 Administered Influenza (High Dose 65 & up) Unknown Dec 19, 2015 Ad ministered Hepatitis A Adult 1.0mL (Havrix) IM Intramuscular June 03, 2014 Administered Influenza (18 yrs & older) Flublok IM Intramuscular Jan 10, 2018 Administered Zoster 0.65mL (Zostavax) Unknown Apr 21, 2013 [...] No Drug and Alcohol Question Answer Notes Interpretation: No problems reported Total Score: 0 Alcohol Screening: Question Answer Notes Did you [...] REASON FOR REFERRAL No Information VITAL SIGNS No information MEDICATIONS Medication SIG (Take, Route, Frequency, Duration) Notes Start Da te End Date Status Doxycycline Monohydrate 100 MG 1 capsule Orally twice daily Dec, Not-Taking Chlorthalidone 25 MG TAKE ONE TABLET BY MOUTH EVERY DAY for 90 Active PredniSONE 10 MG 4 tabs qday x 3, 3 tab qday x 3, 2 tabs qday x 3, 1 tab qday x 3 days Orally as directed for 12 days Dec, Not-Taking Xhycqx-Ptagcrape-Nlfnde-Hyal - 1 cap Orally Daily Active Escitalopram Oxalate 5 MG 1 tablet Orally Once a day Active Sildenafil Citrate 100 MG 1 tablet as needed Orally Once a day Jan, Active Ventolin HFA 108 (90 Base) MCG/ACT 2 puffs as needed I nhalation four times daily as needed for 90 day(s) Dec, Active Multivitamins 0 1 tab(s) p.o. daily [...] with food Orally On a Jan, Active Losartan Potassium 100 MG 1 tablet Orally Once a day Active Diclofenac Sodium 1 % 4 gm to large joints, 2 gm t o small joints Transdermal four times daily as needed Aug, Not-T aking CPAP Machine 9 cm H2O qhs Mar, Active Atorvastatin Calcium 20 MG TAKE ONE TABLET BY MOUTH ONCE A DAY Active Amlodipine Besylate 5 MG TAKE ONE TABLET BY MOUTH DAILY Active PROCEDURES No Information RESULTS No Results REASON FOR VISIT msg/call back MEDICAL (GENERAL) HISTORY Type Description Date Medical History HTN Medical History HYPERCHOLESTEROLEMIA Medical History OA Medical History zostavax @ [facility] 04/21/2013 Medical History Spirometry 08/15/2016 Surgical History [...] No Information FUNCTIONAL STATUS No Information ASSESSMENTS No Information PLAN OF TREATMENT Medication Medication Name Sig Start Date Stop Date CPAP mask 9 cm H2O pressure mask qhs Mar, CPAP Machine 9 cm H2O qhs Mar, Vitamin D 2000 units 1 tab(s) p.o. daily Multivitamins 0 1 tab(s) p.o. daily Lumigan 0.01 % 1 drop into affected eye in the evening Ophthalm ic Once a day Zczcnj-Tqyujtrwz-Octeav-Hyal - 1 cap Orally Daily Aspirin 81 [...] MG 1 tablet Orally Once a day Chlorthalidone 25 MG TAKE ONE TABLET BY MOUTH EVERY DAY for 90 Amlodipine Besylate 5 MG TAKE ONE TABLET BY MOUTH DAILY Ventolin HFA 108 (90 Base) MCG/ACT 2 puffs as needed I nhalation four times daily as needed for 90 day(s) Dec, Escitalopram Oxalate 5 MG 1 tablet Orally Once a day Next Appt Details Provider Name:Alireza Lara, 2020-03-18 09 :00:00 AM, [place], [address], Provider Name:Alireza Lara, 2020-08-11 09 :30:00 AM, [address] [place], [address], Insurance Providers Payer Name Payer Address Payer Phone Insured Name Patient Relati onship to Insured Coverage Start Date Coverage End Date MEDICARE BLUE P[facility] CR[facility] [address] [id number] DONTE FLOOD 2012
--- OUTSIDE RECORDS SUMMARY | 2020-03-24 08:54 | CCD ---
Author Author [facility] Organization [facility] Address Unknown Phone Unavailable Care Team Providers Care Pharmacist Aide Name Role Phone LaraAlireza guzman Unavailable PROBLEMS Type Condition ICD9-CM Code CLI33-YS Code Onset Dates Condition S tatus SNOMED Code Notes Problem Essential hypertension I10 Active 86672177 Problem Moderate persistent asthma without complication J4 5.40 Active 965567953 Problem Sinusitis, unspecified chronicity, unspecified location J32.9 Active 40599933 Problem BMI 38.0-38.9,adult Z68.38 Active 929930370 Problem THU (obstructive sleep apnea) G47.33 Active 78 657453 Problem Lumbago with sciatica, right side M54.41 Active 766230945 Problem Other chronic pain G89.29 Active 84420027 Problem Abdominal wall pain in left lower quadrant R10.32 Active 750736000 Problem Erectile dysfunction, unspecified erectile dysfunction typ e N52.9 Active 897514151 Problem Mild aortic stenosis I35.0 Active 53466648 Problem Urge incontinence N39.41 Active 25936597 Problem Reactive depression F32.9 Active 25280216 Problem Encounter for immunization Z23 Active 53107 8001 Problem Primary osteoarthritis of right knee M17.11 Act valerio 197041284 Problem Mild persistent asthma, unspecified whether complicated J45.30 Active 150699879 Problem Glaucoma of both eyes, unspecified glaucoma type H 40.9 Active 14422625 ALLERGIES No Known Allergies ENCOUNTERS from 1945 to 2020-03-01 Encounter Location Date Provider Diagnosis [facility] [address] [place] [address] Feb, Alireza Lara Elevated TSH R79.89 IMMUNIZATIONS Vaccine Route Administration Date Status Influenza [...] as directed for 12 days Dec, Not-Taking Hyllgj-Vrxrxmcha-Avjbwf-Hyal - 1 cap Orally Daily Active Escitalopram [...] in the morning with food Orally On Jan, Active Losartan Potassium 100 MG 1 [...] Information RESULTS No Results REASON FOR VISIT No Information MEDICAL (GENERAL) HISTORY Type Description Date Medical History HTN Medical History HYPERCHOLESTEROLEMIA Medical History OA Medical History zostavax @ [facility] 04/21/2013 Medical History Spirometry 08/15/2016 Surgical History [...] Treatment Notes Treatm ent Clinical Notes Feb, Elevated TSH (ICD-10 - R79.89) PLAN OF TREATMENT Medication Medication Name Sig Start Date Stop Date CPAP mask 9 cm H2O pressure mask qhs Mar, CPAP Machine 9 cm H2O qhs Mar, Vitamin D 2000 units 1 tab(s) p.o. daily Multivitamins 0 1 tab(s) p.o. daily Lumigan 0.01 % 1 drop into affected eye in the evening Ophthalm ic Once a day Guhean-Nqwpbaqbv-Wxxdry-Hyal - 1 cap Orally Daily Aspirin 81 [...] MG 1 tablet Orally Once a day Future Test Test Name Order Date FREE T4 & TSH PANEL [id number] Next Appt Details Provider Name:Alireza Lara, 2020-03-18 09 :00:00 AM, [place], [address], Provider Name:Alireza Lara, 2020-08-11 09 :30:00 AM, [place], [address], Insurance Providers Payer Name Payer Address Payer Phone Insured Name Patient Relati onship to Insured Coverage Start Date Coverage End Date MEDICARE BLUE PPO [address] [address] [id number] DONTE FLOOD 2012
--- OUTSIDE RECORDS SUMMARY | 2020-03-24 08:55 | CCD ---
Author Author [facility] Organization [facility] Address Unknown Phone Unavailable Care Team Providers Care Inspector Hairspring Truing Name Role Phone Hemanth Clayton Unavailable PROBLEMS Type Condition ICD9-CM Code LLI11-BF Code Onset Dates Condition S tatus SNOMED Code Notes Problem Sinusitis, unspecified chronicity, unspecified location J32.9 Active 19912283 Problem Essential hypertension I10 Active 95692936 Problem THU (obstructive sleep apnea) G47.33 Active 78 776029 Problem Moderate persistent asthma without complication J4 5.40 Active 628482112 Problem Mild aortic stenosis I35.0 Active 45659923 Problem Lumbago with sciatica, right side M54.41 Active 533630477 Problem Other chronic pain G89.29 Active 99800519 Problem Glaucoma of both eyes, unspecified glaucoma type H 40.9 Active 12228142 Problem Reactive depression F32.9 Active 27847744 Problem Erectile dysfunction, unspecified erectile dysfunction typ e N52.9 Active 449531401 Problem BMI 38.0-38.9,adult Z68.38 Active 711224746 Problem Abdominal wall pain in left lower quadrant R10.32 Active 551668894 Problem Encounter for immunization Z23 Active 84701 8001 Problem Primary osteoarthritis of right knee M17.11 Act valerio 460727471 Problem Mild persistent asthma, unspecified whether complicated J45.30 Active 420418813 ALLERGIES No Known Allergies ENCOUNTERS from 1945 to 2020-01-06 Encounter Location Date Provider Diagnosis [facility] [address] [place] [address] Dec Hemanth Clayton Cough R05 and Acute bronchitis, unspecif ied organism J20.9 IMMUNIZATIONS Vaccine Route Administration Date Status Influenza [...] Unknown Audit Question Answer Notes Total Score: 5 Interpretation: Alcohol Education Sexual Hx: Question Answer [...] since you last smoked? > 10 years REASON FOR REFERRAL No Information VITAL SIGNS Weight 252 lbs Dec, Height 5'6 1/2" in Dec, BMI 40.06 kg/m2 Dec, Heart Rate 64 /min Dec, Respiratory Rate 20 /min Dec, Temperature 98.7 degrees Fahrenheit Dec, Oximetry 97 Dec, Blood pressure systolic 127 mm Hg Dec, Blood pressure diastolic 76 mm Hg Dec, MEDICATIONS Medication SIG (Take, Route, Frequency, Duration) Start Date En d Date Status Losartan Potassium 100 MG 1 tablet Orally Once a day for 90 Active CPAP Machine 9 cm H2O qhs Mar, Active Diclofenac Sodium 1 % 4 gm to large joints, 2 gm t o small joints Transdermal four times daily as needed Aug, Not-Taking Doxycycline Monohydrate 100 MG 1 capsule Orally Once a day for 10 d ay(s) Active Atorvastatin Calcium 20 MG TAKE ONE TABLET BY MOUTH ONCE A DAY for 90 Active Vitamin D 2000 units 1 tab(s) p.o. daily Active Escitalopram Oxalate 5 MG 1 tablet Orally Once a day for 90 Active Lumigan 0.01 % 1 drop into affected eye in the evening Ophthalm ic Once a day Active Rpwlel-Awrxoutyp-Qizhlo-Hyal - 1 cap Orally Daily Active Ventolin HFA 108 (90 Base) MCG/ACT 2 puffs as needed I nhalation four times daily as needed Dec, Active Aspirin 81 MG 1 tab(s) p.o. daily Active Tessalon Perles 100 MG 1 capsule as needed Orally T hree times a day for 10 day(s) Active PredniSONE 10 MG 4 tabs qday x 3, 3 tab qday x 3, 2 tabs qday x 3, 1 tab qday x 3 days Orally as directed for 12 days Dec, Ac tive CPAP mask 9 cm H2O pressure mask qhs Mar, A ctive Doxycycline Monohydrate 100 MG 1 capsule Orally twice daily Dec, Active Sildenafil Citrate 100 MG 1 tablet as needed Orally Once a d ay for 90 day(s) Jan, Active Chlorthalidone 25 MG 1 tablet in the morning with food Orally Once a day for 90 day(s) Jan, Active Multivitamins 0 1 tab(s) p.o. daily Activ e Amlodipine Besylate 5 MG TAKE ONE TABLET BY MOUTH DAILY for 90 Active PROCEDURES No Information RESULTS No Results REASON FOR VISIT RECHECK APPT MEDICAL (GENERAL) HISTORY Type Description Date Medical History HTN Medical History HYPERCHOLESTEROLEMIA Medical History OA Medical History victorina @ [employer] 04/21/2013 Medical History Spirometry 08/15/2016 Surgical History [...] STATUS No Information ASSESSMENTS Encounter Date Diagnosis Notes Dec, Cough (ICD-10 - R05) Dec, Acute bronchitis, unspecified organism ( ICD-10 - J20.9) PLAN OF TREATMENT Medication Medication Name Sig Start Date Stop Date Tessalon Perles 100 MG 1 capsule as needed Orally T hree times a day for 10 day(s) Doxycycline Monohydrate 100 MG 1 capsule Orally Once a day for 1 0 day(s) Treatment Notes Assessment Notes Clinical Notes Cough You have bronchitis at this time, which is usually caused by a viral infection. Unfortunately, antibiotics do not help with viral infections. They are usually benign and self-limited infections, so treatment is based on symptomatic relief. However, because of your worsening symptoms and lung disease, you are at risk of having a bacterial infection. Rest and drink clear fluids throughout the day. You may use humidification and saline irrigation to help with the congestion. You may also take motrin or tylenol as needed for pain or fever. You may also consider using xvjq-gxw-hettolx decongestant medication as needed. Viral infections sometimes may last 10-14 days before resolving completely. Use albuterol as needed to help with breathing and inflammation in the lungs. Next Appt Details 2 - 3 Days unless improving Reason: Provider Name:Alireza Lara, 2020-02-10 09 :00:00 AM, [address] [place], [address], Insurance Providers Payer Name Payer Address Payer Phone Insured Name Patient Relati onship to Insured Coverage Start Date Coverage End Date MEDICARE BLUE PPO [address] BLUE CROSS [address] [facility] [id number] DON[place] FLOOD self 2012
--- OUTSIDE RECORDS SUMMARY | 2020-03-24 08:55 | CCD | Continuity of Care Document ---
Author Hakeem Tay M.D. Organization Unknown Address [address] [facility], [address] [place] [address] Phone [phone] Care Team Providers Care Nuclear Engineering Technician Name Role Phone Alireza Lara M.D. AUTM [phone] Problems Active Problems Provider Date Inguinal hernia without obstruction AND without gangrene Tobias Pickering M.D. 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 Onset: 0 07/17/2013 Hydrocele Jaziel Pickering M.D. Onset: 05/18/2013 Social History Type Date Description Comments Sex Unknown ETOH Use 2 A Day Tobacco Use Start: Unknown End: Unknown Patient is a former smoker 1 PPD X15 YRS Recreational Drug Use Denies Drug Use Tobacco Use Start: Unknown Quit 1977 Allergies, Adverse Reactions, Alerts Description No Known Drug Allergies Medications Active Medications SIG Qnty Indications Ordering Provide r Date Pravastatin Sodium 20mg Tablets 1 po qd Unknown Amlodipine Besylate 5mg Tablets 1 po qd 30tabs Unknown Aspir-[address] qd Unknown Glucosamine Chondroitin 500 Complex 1500Comp Capsules bid Unknown Vitamin E 400Unit Capsules da marcello Unknown Losartan Potassium 100mg Tablets 1 po qd Unknown Lumigan 0.01% Solution 1 Drop Each Eye AT hs Unknown Latanoprost 0.005% Solution 1 drop every day Unknown Atorvastatin Calcium 20mg Tablets 1 by mouth every day Unknown Escitalopram Oxalate 5mg Tablets every day Unknown Chlorthalidone 25mg Tablets 1 by mouth every day Unknown Multivitamin Adult Tablets 1 by mouth every day Unknown Immunizations Description No Information Available Vital Signs Date Vital Result Comment 02/15/2020 2:22pm BP Systolic 120 mmHg BP Diastolic 60 mmHg Height 67 inches 5'7" Weight 253.00 lb BMI (Body Mass Index) 39.6 kg/m2 [place] Body Weight 148 lb Weight 114.761 kg BSA (Body Surface Area) 2.23 m2 09/30/2013 11:11am BP Systolic 154 mmHg BP Diastolic 91 mmHg Heart Rate 61 /min Height 67 inches 5'7" Weight 224.00 lb BMI (Body Mass Index) 35.1 kg/m2 [place] Body Weight 148 lb Weight 101.606 kg BSA (Body Surface Area) 2.12 m2 Results Description No Information Available Procedures Description No Information Available Medical Devices Description No Information Available Encounters Description No Information Available Assessments Description No Information Available Plan of Treatment 09/30/2013 - Jaziel Pickering M.D.* 608.89 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 There is no sign of any recurrence of fluid and the induration is markedly reduced. He is feeling much better. The patient will be released to follow up with me on an as-needed basis. * Follow up:* As needed Functional Status Description No Information Available Mental Status Description No Information Available Referrals Refer to Reason for Referral Status Appt Date Jaziel Pickering M.D. RIGHT INGUINAL HERNIA, COLONOSCOPY Sched uled 02/15/2020 [facility] [address] [place] [id number] [phone]
--- OUTSIDE RECORDS SUMMARY | 2020-03-24 08:55 | CCD ---
Author Author [facility] Organization [facility] Address Unknown Phone Unavailable Care Team Providers Care Technical Staff Engineer Name Role Phone Alireza Lara Unavailable PROBLEMS Type Condition ICD9-CM Code NER16-OW Code Onset Dates Condition S tatus SNOMED Code Notes Problem Sinusitis, unspecified chronicity, unspecified location J32.9 Active 83937415 Problem Essential hypertension I10 Active 34521418 Problem THU (obstructive sleep apnea) G47.33 Active 78 584361 Problem Moderate persistent asthma without complication J4 5.40 Active 023218037 Problem Mild aortic stenosis I35.0 Active 56867320 Problem Lumbago with sciatica, right side M54.41 Active 447758278 Problem Other chronic pain G89.29 Active 32389419 Problem Glaucoma of both eyes, unspecified glaucoma type H 40.9 Active 82500289 Problem Reactive depression F32.9 Active 94701795 Problem Erectile dysfunction, unspecified erectile dysfunction typ e N52.9 Active 417520733 Problem BMI 38.0-38.9,adult Z68.38 Active 417908129 Problem Abdominal wall pain in left lower quadrant R10.32 Active 865821898 Problem Encounter for immunization Z23 Active 87240 8001 Problem Primary osteoarthritis of right knee M17.11 Act valerio 155714843 Problem Mild persistent asthma, unspecified whether complicated J45.30 Active 021738157 ALLERGIES No Known Allergies ENCOUNTERS from 1945 to 2020-01-01 Encounter Location Date Provider Diagnosis [address] [address] Dec, 2 020 Alireza Lara IMMUNIZATIONS Vaccine Route Administration Date [...] evening Ophthalm ic Once a day Active Gyeumu-Qzxkcatbo-Aqeeip-Hyal - 1 cap Orally Daily Active Ventolin [...] Information RESULTS No Results REASON FOR VISIT PA sildenafil 100mg tab MEDICAL (GENERAL) HISTORY Type Description Date Medical History HTN Medical History HYPERCHOLESTEROLEMIA Medical History OA Medical History zostavax @ [facility] [employer] 04/21/2013 Medical History Spirometry 08/15/2016 Surgical History [...] Once a day for 1 0 day(s) Next Appt Details Provider Name:Alireza Lara, 2020-02-10 09 :00:00 AM, [address] [place] [address], [place], [address], Insurance Providers Payer Name Payer Address Payer Phone Insured Name Patient Relati onship to Insured Coverage Start Date Coverage End Date MEDICARE BLUE PPO [address] [facility] [address]UE [id number] [address] [place] FLOOD self 2012
--- OUTSIDE RECORDS SUMMARY | 2020-03-24 08:56 | CCD ---
Author Author [facility] Organization [facility] Address Unknown Phone Unavailable Care Team Providers Care Regional Recruiter Name Role Phone Dodgert[place]Hemanth trejo Unavailable PROBLEMS Type Condition ICD9-CM Code [id number] Code Onset Dates Condition S tatus SNOMED Code Notes Problem Sinusitis, unspecified chronicity, unspecified location J32.9 Active 53230392 Problem Essential hypertension I10 Active 08124526 Problem THU (obstructive sleep apnea) G47.33 Active 78 400332 Problem Moderate persistent asthma without complication J4 5.40 Active 079221364 Problem Mild aortic stenosis I35.0 Active 43023149 Problem Lumbago with sciatica, right side M54.41 Active 003479104 Problem Other chronic pain G89.29 Active 14103346 Problem Glaucoma of both eyes, unspecified glaucoma type H 40.9 Active 64288318 Problem Reactive depression F32.9 Active 83959197 Problem Erectile dysfunction, unspecified erectile dysfunction typ e N52.9 Active 111533226 Problem BMI 38.0-38.9,adult Z68.38 Active 854363256 Problem Abdominal wall pain in left lower quadrant R10.32 Active 895760119 Problem Encounter for immunization Z23 Active 51251 8001 Problem Primary osteoarthritis of right knee M17.11 Act valerio 270640542 Problem Mild persistent asthma, unspecified whether complicated J45.30 Active 723045863 ALLERGIES No Known Allergies ENCOUNTERS from 1945 to 2019-12-31 Encounter Location Date Provider Diagnosis [facility] [address] [place] [address] Dec Hemanth Clayton Fever, unspecified fever cause R50.9 ; C ough R05 and Traumatic injury of rib S29.9XXA IMMUNIZATIONS Vaccine Route Administration Date Status Influenza [...] Dec, BMI 40.06 kg/m2 Dec, Heart Rate 68 /min Dec, Respiratory Rate 22 /min Dec, Temperature 100.2 degrees Fahrenheit Dec, Oximetry 94-95 Dec, Blood pressure systolic 147 mm Hg Dec, Blood pressure diastolic 90 mm Hg Dec, MEDICATIONS Medication SIG (Take, [...] evening Ophthalm ic Once a day Active Bvbtlk-Jsbwwbatt-Jxqzng-Hyal - 1 cap Orally Daily Active Ventolin [...] for 90 Active PROCEDURES No Information RESULTS Component Value Reference Range Coronavirus 2019 NOSE (COVID) Reviewed date:12/24/2019 10:39:41 Interpretation:Negative Performing Lab:Replaced By [facility] [address] [facility] [address] , ,[place] [address] CORONAVIRUS 2019 NOSE Testing was performed using the gordy( R) SARS-CoV-2 test. CORONAVIRUS 2019 NOSE This nucleic acid amplificat ion test was developed and its CORONAVIRUS 2019 NOSE performance characteristics determined by [facility] CORONAVIRUS 2019 NOSE [facility]. Nucleic acid a mplification tests include PCR CORONAVIRUS 2019 NOSE and TMA. This test has not been FDA cl eared or approved. CORONAVIRUS 2019 NOSE This test has been authorize d by FDA under an Emergency Use CORONAVIRUS 2019 NOSE Authorization (EUA). This test is only authorized for CORONAVIRUS 2019 NOSE the duration of time the declaration t hat circumstances CORONAVIRUS 2019 NOSE exist justifying the authori zation of the emergency use of CORONAVIRUS 2019 NOSE in vitro diagnostic tests fo r detection of SARS-CoV-2 virus CORONAVIRUS 2019 NOSE and/or diagnosis of COVID-19 infection under section CORONAVIRUS 2019 NOSE 564(b)(1) of the Act, 21 U.S .C. 360bbb-3(b) (1), unless the CORONAVIRUS 2019 NOSE authorization is terminated or revoked sooner. CORONAVIRUS 2019 NOSE When diagnostic testing is negative, t he possibility of a CORONAVIRUS 2019 NOSE false negative result should be consid ered in the context CORONAVIRUS 2019 NOSE of a patient's recent exposures and th e presence of CORONAVIRUS 2019 NOSE clinical signs and symptoms consistent with COVID-19. An CORONAVIRUS 2019 NOSE individual without symptoms of COVID-1 9 and who is not CORONAVIRUS 2019 NOSE shedding SARS-CoV-2 virus would expect to have a negative CORONAVIRUS 2019 NOSE (not detected) result in this assay. CORONAVIRUS 2019 NOSE [facility]formed at[facility] CORONAVIRUS 2019 NOSE [address] [facility], [place], [place] [id number] CORONAVIRUS 2019 NOSE Life Skills Coordinator: Linda Moreau MD, Phon e: [phone] CORONAVIRUS 2019 NOSE CORONAVIRUS 2019 NOSE Not Detected CORONAVIRUS 2019 NOSE REASON FOR VISIT cough, sinus pressure, subjective fever MEDICAL (GENERAL) HISTORY Type Description Date Medical History HTN Medical History HYPERCHOLESTEROLEMIA Medical History OA Medical History victorina @ [employer] 04/21/2013 Medical History Spirometry 08/15/2016 Surgical History [...] Information ASSESSMENTS Encounter Date Diagnosis Notes Dec, Fever, unspecified fever cause (ICD-10 - R50.9) Dec, Traumatic injury of rib (ICD-10 - S29.9X XA) Dec, Cough (ICD-10 - R05) PLAN OF TREATMENT Medication Medication Name Sig [...] or fever. You may also consider using lymr-qlg-hisizlj decongestant medication as needed. Viral infections sometimes may last 10-14 days before resolving completely. Use albuterol as needed to help with breathing and inflammation in the lungs. Treatment Notes Test Name Order Date SHAKIR CHEST 2 VIEW 2019-12-31 SHAKIR RIBS UNILATERAL W/O PA CHEST 2019-12-31 Nebulizer Treatment Initial 2019-12-31 Medication: DuoNeb Inhalation (Ipratropi um Surprise 0.5mg & Albuterol Sulfate 2.5mg) 2019-12-31 Next Appt Details 2 - 3 Days unless improving, in 5-7 days for recheck Reason: Provider Name:Alireza Lara, 2020-02-10 09 :00:00 AM, [address] , [place], [address], Insurance Providers Payer Name Payer Address Payer Phone Insured Name Patient Relati onship to Insured Coverage Start Date Coverage End Date MEDICARE BLUE O [address] [id number] [employer] FLOOD self 2012
--- OUTSIDE RECORDS SUMMARY | 2020-03-24 08:56 | CCD ---
Author Author [facility] Organization [facility] Address Unknown Phone Unavailable Care Team Providers Care Insurance Checker Name Role Phone Alireza Lara Unavailable PROBLEMS Type Condition ICD9-CM Code [id number] Code Onset Dates Condition S tatus SNOMED Code Notes Problem Sinusitis, unspecified chronicity, unspecified location J32.9 Active 29245938 Problem Essential hypertension I10 Active 62150559 Problem THU (obstructive sleep apnea) G47.33 Active 78 281818 Problem Moderate persistent asthma without complication J4 5.40 Active 435547146 Problem Mild aortic stenosis I35.0 Active 68286090 Problem Lumbago with sciatica, right side M54.41 Active 199404612 Problem Other chronic pain G89.29 Active 94455359 Problem Glaucoma of both eyes, unspecified glaucoma type H 40.9 Active 92432646 Problem Reactive depression F32.9 Active 23312627 Problem Erectile dysfunction, unspecified erectile dysfunction typ e N52.9 Active 865776800 Problem BMI 38.0-38.9,adult Z68.38 Active 817965520 Problem Abdominal wall pain in left lower quadrant R10.32 Active 947097655 Problem Encounter for immunization Z23 Active 63733 8001 Problem Primary osteoarthritis of right knee M17.11 Act valerio 076442503 Problem Mild persistent asthma, unspecified whether complicated J45.30 Active 722533397 ALLERGIES No Known Allergies ENCOUNTERS from 1945 to 2019-12-26 Encounter Location Date Provider Diagnosis [facility] [address] [place] [address] 16 Dec, 2019 Alireza Lara IMMUNIZATIONS Vaccine Route Administration Date [...] Duration) Start Date En d Date Status Doxycycline Monohydrate 100 MG 1 capsule Orally every 12 hrs for 10 day(s) Dec, Active Escitalopram Oxalate 5 MG 1 tablet Orally Once a day for 90 Active Tessalon Perles 100 MG 1 capsule as needed Orally T hree times a day for 10 day(s) Dec, Active Aspirin 81 MG 1 tab(s) p.o. daily Active PredniSONE 10 MG 4 tabs qday x 3, 3 tab qday x 3, 2 tabs qday x 3, 1 tab qday x 3 days Orally as directed for 12 days Dec, Ac tive Diclofenac Sodium 1 % 4 gm to large joints, 2 gm t o small joints Transdermal four times daily as needed Aug, Not-Taking Doxycycline Monohydrate 100 MG 1 capsule Orally Once a day f or 10 day(s) Dec, Active CPAP mask 9 cm H2O pressure mask qhs Mar, A ctive Qixrmx-Hvxxtdbqu-Vmbkoz-Hyal - 1 cap Orally Daily Active Chlorthalidone 25 MG 1 tablet in the morning with food Orally Once a day for 90 day(s) Jan, Active Sildenafil Citrate 100 MG 1 tablet as needed Orally Once a d ay for 90 day(s) Jan, Active Amlodipine Besylate 5 MG TAKE ONE TABLET BY MOUTH DAILY for 90 Active Lumigan 0.01 % 1 drop into affected eye in the evening Ophthalm ic Once a day Active Atorvastatin Calcium 20 MG TAKE ONE TABLET BY MOUTH ONCE A DAY for 90 Active Multivitamins 0 1 tab(s) p.o. daily Activ e Losartan Potassium 100 MG 1 tablet Orally Once a day for 90 Active Ventolin HFA 108 (90 Base) MCG/ACT 2 puffs as needed I nhalation four times daily as needed Dec, Not-Taking Vitamin D 2000 units 1 tab(s) p.o. daily Active CPAP Machine 9 cm H2O qhs Mar, Active PROCEDURES No Information RESULTS No Results REASON FOR VISIT Flu shot MEDICAL (GENERAL) HISTORY Type Description Date Medical History HTN Medical History HYPERCHOLESTEROLEMIA Medical History OA Medical History zostavax @ [employer] 04/21/2013 Medical History Spirometry 08/15/2016 Surgical History [...] Medication Name Sig Start Date Stop Date PredniSONE 10 MG 4 tabs qday x 3, 3 tab qday x 3, 2 tabs qday x 3, 1 tab qday x 3 days Orally as directed for 12 days Dec, Doxycycline Monohydrate 100 MG 1 capsule Orally every 12 hrs for 10 day(s) Dec, Doxycycline Monohydrate 100 MG 1 capsule Orally Once a day f or 10 day(s) Dec, Tessalon Perles 100 MG 1 capsule as needed Orally T hree times a day for 10 day(s) Dec, Next Appt Details Provider Name:Hemanth Clayton, 2019-12-29 10:00:00 AM, [place], [address], Insurance Providers Payer Name Payer Address Payer Phone Insured Name Patient Relati onship to Insured Coverage Start Date Coverage End Date MEDICARE BLUE PPO [id number] [address] [employer] FLOOD self 2012
--- OUTSIDE RECORDS SUMMARY | 2020-03-24 08:57 | CCD ---
Author Author [facility] Organization [facility] Address Unknown Phone Unavailable Care Team Providers Care Rest Room Attendant Name Role Phone Dione Varma MD Unavailable Dione Varma MD Unavailable Dione Varma MD Unavailable Dione Varma MD Unavailable Dione Varma MD Unavailable Dione Varma MD Unavailable Dione Varma MD Unavailable Dione Varma MD Unavailable Dione Varma MD Unavailable Dione Varma MD Unavailable Dione Varma MD Unavailable Dione Varma MD Unavailable Dione Varma MD Unavailable Dione Varma MD Unavailable Dione Varma MD Unavailable Dione Varma MD Unavailable Varma, B Jacek MD Unavailable Varma, B Jacek MD Unavailable Varma, B Jacek MD Unavailable Varma, B Jacek MD Unavailable Varma, B Jacek MD Unavailable Varma, B Jacek MD Unavailable Varma, B Jacek MD Unavailable Varma, B Jacek MD Unavailable Varma, B Jacek MD Unavailable Varma, B Jacek MD Unavailable Varma, B Jacek MD Unavailable Varma, B Jacek MD Unavailable Re-disclosure Warning The records that you are about to access may contain information from federally-assisted alcohol or drug abuse programs. If such information is present, then the following federally mandated warning applies: This information has been disclosed to you from records protected by federal confidentiality rules (42 CFR part 2). The federal rules prohibit you from making any further disclosure of this information unless further disclosure is expressly permitted by the written consent of the person to whom it pertains or as otherwise permitted by 42 CFR part 2. A general authorization for the release of medical or other information is NOT sufficient for this purpose. The Federal rules restrict any use of the information to criminally investigate or prosecute any alcohol or drug abuse patient.The records that you are about to access may contain highly sensitive health information, the redisclosure of which is protected by Article 27-F of the [facility] Public Health law. If you continue you may have access to information: Regarding HIV / AIDS; Provided by facilities licensed or operated by the [facility] Office of Mental Health; or Provided by the [facility] Office for People With Developmental Disabilities. If such information is present, then the following [facility] mandated warning applies: This information has been disclosed to you from confidential records which are protected by state law. State law prohibits you from making any further disclosure of this information without the specific written consent of the person to whom it pertains, or as otherwise permitted by law. Any unauthorized further disclosure in violation of state law may result in a fine or skilled nursing sentence or both. A general authorization for the release of medical or other information is NOT sufficient authorization for further disc losure. Encounters Encounter Providers Location Date Indications Data Source(s ) Out[place] [address] [facility] [address] 03/18/2020 12:00:00 AM EST eCW1 ([facility]) Unknown [address] [facility] [address] 03/01/2020 12:00:00 AM EST eCW1 ([facility]) [place] [address] [facility] [address] 02/28/2020 12:00:00 AM EST eCW1 ([facility]) Outpatient [address] [facility] [address] 02/10/2020 12:00:00 AM EST eCW1 ([facility]) [place] [address] [facility] [address] 12/31/2019 12:00:00 AM EDT eCW1 ([facility]) [place] [address] [facility] [address] 12/29/2019 12:00:00 AM EDT eCW1 ([facility]) [place] [address] [facility] [address] 12/25/2019 12:00:00 AM EDT eCW1 ([facility]) Outpatient [address] [facility] [address] 12/21/2019 12:00:00 AM EDT eCW1 ([facility]) [place] [address] [facility] [address] 12/21/2019 12:00:00 AM EDT eCW1 ([facility]) [place] [address] [facility] [address] 12/21/2019 12:00:00 AM EDT eCW1 ([facility]) Outpatient [address] [facility] [address] 07/24/2019 12:00:00 AM EDT eCW1 ([facility]) [place] [id number] [facility] [address] 07/24/2019 12:00:00 AM EDT eCW1 ([facility]) Recurring Patient Referrer: Jacek Varma MD 07/22/2019 02: 56:34 PM EDT [place] [id number] [facility] [address] 05/22/2019 12:00:00 AM EDT eCW1 ([facility]) [address] [address] 02/03/2019 12:00:00 AM EST eCW1 ([facility]) Immunizations Vaccine Date Status Description Data Source(s) IIV3. This is one of two codes replacing CVX 15, which is being retired. 12/03/2019 01:11:00 PM EDT completed eCW1 ([facility]) IIV3. This is one of two codes replacing CVX 15, which is being retired. 12/03/2019 01:11:00 PM EDT completed eCW1 ([facility]) IIV3. This is one of two codes replacing CVX 15, which is being retired. 12/03/2019 01:11:00 PM EDT completed eCW1 ([facility]) IIV3. This is one of two codes replacing CVX 15, which is being retired. 12/03/2019 01:11:00 PM EDT completed eCW1 ([facility]) IIV3. This is one of two codes replacing CVX 15, which is being retired. 12/03/2019 01:11:00 PM EDT completed eCW1 ([facility]) IIV3. This is one of two codes replacing CVX 15, which is being retired. 12/03/2019 01:11:00 PM EDT completed eCW1 ([facility]) IIV3. This is one of two codes replacing CVX 15, which is being retired. 12/03/2019 01:11:00 PM EDT completed eCW1 ([facility]) IIV3. This is one of two codes replacing CVX 15, which is being retired. 12/03/2019 01:11:00 PM EDT completed eCW1 ([facility]) Medications Medication Brand Name Start Date Product Form Dose Route Admi nistrative Instructions Pharmacy Instructions Status Indications Reaction Description Data Source(s) 17.5-3.13-1.6 gram 03/17/2020 12:00:00 AM EST recon soln 354 USE DIRECTED BY PHYSICIAN USE DIRECTED BY PHYSICIAN SOLD: 03/22/2020 [facility] Prednisone 10 MG Oral Tablet PredniSONE 10 MG PredniSONE 10 MG 12/21/2019 12:00:00 AM EDT suspended Predn iSONE 10 MG eCW1 ([facility]) Doxycycline Monohydrate 100 MG Oral Capsule Doxycycline Lucas hydrate 100 MG 12/21/2019 12:00:00 AM EDT 1.0 {capsule} active Doxycycline Monohydrate 100 MG eCW1 ([facility]) Doxycycline Monohydrate 100 MG Oral Capsule Doxycycline Lucas hydrate 100 MG 12/21/2019 12:00:00 AM EDT 1.0 {capsule} active Doxycycline Monohydrate 100 MG eCW1 ([facility]) Doxycycline Monohydrate 100 MG Oral Capsule Doxycycline Lucas hydrate 100 MG 12/21/2019 12:00:00 AM EDT 1.0 {capsule} active Doxycycline Monohydrate 100 MG eCW1 ([facility]) Prednisone 10 MG Oral Tablet PredniSONE 10 MG PredniSONE 10 MG 12/21/2019 12:00:00 AM EDT active PredniSO NE 10 MG eCW1 ([facility]) benzonatate 100 MG Oral Capsule [Tessalon Perles] Kelsey luis a Perles 100 MG Tessalon Perles 100 MG 12/21/2019 12:00:00 AM EDT 1.0 {capsule_as_nee ded} active Tessalon Perles 100 MG eCW1 ([facility]) benzonatate 100 MG Oral Capsule [Tessalon Perles] Kelsey luis a Perles 100 MG Tessalon Perles 100 MG 12/21/2019 12:00:00 AM EDT 1.0 {capsule_as_nee ded} active Tessalon Perles 100 MG eCW1 ([facility]) Prednisone 10 MG Oral Tablet PredniSONE 10 MG PredniSONE 10 MG 12/21/2019 12:00:00 AM EDT suspended Predn iSONE 10 MG eCW1 ([facility]) Doxycycline Monohydrate 100 MG Oral Capsule Doxycycline Lucas hydrate 100 MG 12/21/2019 12:00:00 AM EDT 1.0 {capsule} suspend ed Doxycycline Monohydrate 100 MG eCW1 ([facility]) Prednisone 10 MG Oral Tablet PredniSONE 10 MG PredniSONE 10 MG 12/21/2019 12:00:00 AM EDT active PredniSO NE 10 MG eCW1 ([facility]) Prednisone 10 MG Oral Tablet PredniSONE 10 MG PredniSONE 10 MG 12/21/2019 12:00:00 AM EDT active PredniSO NE 10 MG eCW1 ([facility]) Doxycycline Monohydrate 100 MG Oral Capsule Doxycycline Lucas hydrate 100 MG 12/21/2019 12:00:00 AM EDT 1.0 {capsule} suspend ed Doxycycline Monohydrate 100 MG eCW1 ([facility]) Prednisone 10 MG Oral Tablet PredniSONE 10 MG PredniSONE 10 MG 12/21/2019 12:00:00 AM EDT suspended Predn iSONE 10 MG eCW1 ([facility]) Doxycycline Monohydrate 100 MG Oral Capsule Doxycycline Lucas hydrate 100 MG 12/21/2019 12:00:00 AM EDT 1.0 {capsule} active Doxycycline Monohydrate 100 MG eCW1 ([facility]) Prednisone 10 MG Oral Tablet PredniSONE 10 MG PredniSONE 10 MG 12/21/2019 12:00:00 AM EDT active PredniSO NE 10 MG eCW1 ([facility]) Doxycycline Monohydrate 100 MG Oral Capsule Doxycycline Lucas hydrate 100 MG 12/21/2019 12:00:00 AM EDT 1.0 {capsule} active Doxycycline Monohydrate 100 MG eCW1 ([facility]) Doxycycline Monohydrate 100 MG Oral Capsule Doxycycline Lucas hydrate 100 MG 12/21/2019 12:00:00 AM EDT 1.0 {capsule} active Doxycycline Monohydrate 100 MG eCW1 ([facility]) Doxycycline Monohydrate 100 MG Oral Capsule Doxycycline Lucas hydrate 100 MG 12/21/2019 12:00:00 AM EDT 1.0 {capsule} active Doxycycline Monohydrate 100 MG eCW1 ([facility]) Prednisone 10 MG Oral Tablet PredniSONE 10 MG PredniSONE 10 MG 12/21/2019 12:00:00 AM EDT active PredniSO NE 10 MG eCW1 ([facility]) benzonatate 100 MG Oral Capsule [Tessalon Perles] Kelsey luis a Perles 100 MG Tessalon Perles 100 MG 12/21/2019 12:00:00 AM EDT 1.0 {capsule_as_nee ded} active Tessalon Perles 100 MG eCW1 ([facility]) Prednisone 10 MG Oral Tablet PredniSONE 10 MG PredniSONE 10 MG 12/21/2019 12:00:00 AM EDT active PredniSO NE 10 MG eCW1 ([facility]) Doxycycline Monohydrate 100 MG Oral Capsule Doxycycline Lucas hydrate 100 MG 12/21/2019 12:00:00 AM EDT 1.0 {capsule} active Doxycycline Monohydrate 100 MG eCW1 ([facility]) Doxycycline Monohydrate 100 MG Oral Capsule Doxycycline Lucas hydrate 100 MG 12/21/2019 12:00:00 AM EDT 1.0 {capsule} suspend ed Doxycycline Monohydrate 100 MG eCW1 ([facility]) Doxycycline Monohydrate 100 MG Oral Capsule Doxycycline Lucas hydrate 100 MG 12/21/2019 12:00:00 AM EDT 1.0 {capsule} active Doxycycline Monohydrate 100 MG eCW1 ([facility]) 100 mg 05/19/2019 12:00:00 AM EDT tablet 90 TAKE 1 TABLET BY MOUTH ONCE A DAY TAKE 1 TABLET BY MOUTH ONCE A DAY SOLD: 08/28/2019 [facility] 5 mg 05/19/2019 12:00:00 AM EDT tablet 90 TAKE 1 TABLET BY MOUTH ONCE A DAY TAKE 1 TABLET BY MOUTH ONCE A DAY SOLD: 08/28/2019 [facility] atorvastatin 20 MG Oral Tablet ATORVASTATIN CALCIUM 05/19/2019 1 2:00:00 AM EDT tablet 90 TAKE 1 TABLET BY MOUTH ONCE A DAY TAKE 1 TABLET BY MOUTH ONCE A DAY SOLD: 05/25/2019 [facility] Losartan Potassium 100 MG Oral Tablet LOSARTAN POTASSIUM 12:00:00 AM EDT tablet 90 TAKE 1 TABLET BY MOUTH ONCE A DAY TAKE 1 TABLET BY MOUTH ONCE A DAY SOLD: 05/25/2019 [facility] 25 mg 05/19/2019 12:00:00 AM EDT tablet 90 TAKE 1 TABLET BY MOUTH ONCE IN THE MORNING TAKE 1 TABLET BY MOUTH ONCE IN THE MORNING SOLD: 05/25/2019 [facility] atorvastatin 20 MG Oral Tablet ATORVASTATIN CALCIUM 05/19/2019 1 2:00:00 AM EDT tablet 90 TAKE 1 TABLET BY MOUTH ONCE A DAY TAKE 1 TABLET BY MOUTH ONCE A DAY SOLD: 08/28/2019 [facility] 5 mg 05/19/2019 12:00:00 AM EDT tablet 90 TAKE 1 TABLET BY MOUTH ONCE A DAY TAKE 1 TABLET BY MOUTH ONCE A DAY SOLD: 05/25/2019 [facility] Escitalopram 5 MG Oral Tablet ESCITALOPRAM OXALATE 05/19/2019 12 :00:00 AM EDT tablet 90 TAKE 1 TABLET BY MOUTH ONCE A DAY TAKE 1 TABLET BY MOUTH ONCE A DAY SOLD: 08/28/2019 [facility] Escitalopram 5 MG Oral Tablet ESCITALOPRAM OXALATE 05/19/2019 12 :00:00 AM EDT tablet 90 TAKE 1 TABLET BY MOUTH ONCE A DAY TAKE 1 TABLET BY MOUTH ONCE A DAY SOLD: 05/25/2019 [facility] 25 mg 05/19/2019 12:00:00 AM EDT tablet 90 TAKE 1 TABLET BY MOUTH ONCE IN THE MORNING TAKE 1 TABLET BY MOUTH ONCE IN THE MORNING SOLD: 08/28/2019 [facility] 100 mg 02/23/2019 12:00:00 AM EST tablet 12 TAKE ONE TABLET BY MOUTH EVERY DAY NEEDED TAKE ONE TABLET BY MOUTH EVERY DAY NEEDED SOLD: 02/23/2019 [facility] 25 mg 02/04/2019 12:00:00 AM EST tablet 90 TAKE ONE TABLET BY MOUTH EVERY DAY WITH FOOD IN TE MORNING TAKE ONE TABLET BY MOUTH EVERY DAY WITH FOOD IN TE MORNING SOLD: 05/14/2019 [facility] 25 mg 02/04/2019 12:00:00 AM EST tablet 90 TAKE ONE TABLET BY MOUTH EVERY DAY WITH FOOD IN TE MORNING TAKE ONE TABLET BY MOUTH EVERY DAY WITH FOOD IN TE MORNING SOLD: 02/06/2019 [facility] 25 mg 02/04/2019 12:00:00 AM EST tablet 90 TAKE ONE TABLET BY MOUTH EVERY DAY WITH FOOD IN TE MORNING TAKE ONE TABLET BY MOUTH EVERY DAY WITH FOOD IN TE MORNING SOLD: 08/14/2019 [facility] sildenafil 100 MG Oral Tablet Sildenafil Citrate 100 M G Sildenafil Citrate 100 MG 02/03/2019 12:00:00 AM EST 1.0 {tablet_as_needed} active Sildenafil Citrate 100 MG eCW1 ([facility]) sildenafil 100 MG Oral Tablet Sildenafil Citrate 100 M G Sildenafil Citrate 100 MG 02/03/2019 12:00:00 AM EST 1.0 {tablet_as_needed} active Sildenafil Citrate 100 MG eCW1 ([facility]) Chlorthalidone 25 MG Oral Tablet Chlorthalidone 25 MG 2018 12:00:00 AM EST active 1 tablet in the m orning with food eCW1 ([facility]) Chlorthalidone 25 MG Oral Tablet Chlorthalidone 25 MG 2018 12:00:00 AM EST 1.0 {tablet_in_the_morning_with_food} active Chlorthalidone 25 MG eCW1 ([facility]) Chlorthalidone 25 MG Oral Tablet Chlorthalidone 25 MG 2018 12:00:00 AM EST 1.0 {tablet_in_the_morning_with_food} active Chlorthalidone 25 MG eCW1 ([facility]) sildenafil 100 MG Oral Tablet Sildenafil Citrate 100 M G Sildenafil Citrate 100 MG 02/03/2019 12:00:00 AM EST 1.0 {tablet_as_needed} active Sildenafil Citrate 100 MG eCW1 ([facility]) sildenafil 100 MG Oral Tablet Sildenafil Citrate 100 M G Sildenafil Citrate 100 MG 02/03/2019 12:00:00 AM EST 1.0 {tablet_as_needed} active Sildenafil Citrate 100 MG eCW1 ([facility]) sildenafil 100 MG Oral Tablet Sildenafil Citrate 100 M G Sildenafil Citrate 100 MG 02/03/2019 12:00:00 AM EST active 1 tablet as needed eCW1 ([facility]) sildenafil 100 MG Oral Tablet Sildenafil Citrate 100 M G Sildenafil Citrate 100 MG 02/03/2019 12:00:00 AM EST 1.0 {tablet_as_needed} active Sildenafil Citrate 100 MG eCW1 ([facility]) sildenafil 100 MG Oral Tablet Sildenafil Citrate 100 M G Sildenafil Citrate 100 MG 02/03/2019 12:00:00 AM EST 1.0 {tablet_as_needed} active Sildenafil Citrate 100 MG eCW1 ([facility]) Chlorthalidone 25 MG Oral Tablet Chlorthalidone 25 MG 2018 12:00:00 AM EST 1.0 {tablet_in_the_morning_with_food} active Chlorthalidone 25 MG eCW1 ([facility]) sildenafil 100 MG Oral Tablet Sildenafil Citrate 100 M G Sildenafil Citrate 100 MG 02/03/2019 12:00:00 AM EST 1.0 {tablet_as_needed} active Sildenafil Citrate 100 MG eCW1 ([facility]) sildenafil 100 MG Oral Tablet Sildenafil Citrate 100 M G Sildenafil Citrate 100 MG 02/03/2019 12:00:00 AM EST 1.0 {tablet_as_needed} active Sildenafil Citrate 100 MG eCW1 ([facility]) Chlorthalidone 25 MG Oral Tablet Chlorthalidone 25 MG 2018 12:00:00 AM EST 1.0 {tablet_in_the_morning_with_food} active Chlorthalidone 25 MG eCW1 ([facility]) Chlorthalidone 25 MG Oral Tablet Chlorthalidone 25 MG 2018 12:00:00 AM EST 1.0 {tablet_in_the_morning_with_food} active Chlorthalidone 25 MG eCW1 ([facility]) Chlorthalidone 25 MG Oral Tablet Chlorthalidone 25 MG 2018 12:00:00 AM EST 1.0 {tablet_in_the_morning_with_food} active Chlorthalidone 25 MG eCW1 ([facility]) sildenafil 100 MG Oral Tablet Sildenafil Citrate 100 M G Sildenafil Citrate 100 MG 02/03/2019 12:00:00 AM EST 1.0 {tablet_as_needed} active Sildenafil Citrate 100 MG eCW1 ([facility]) Chlorthalidone 25 MG Oral Tablet Chlorthalidone 25 MG 2018 12:00:00 AM EST 1.0 {tablet_in_the_morning_with_food} active Chlorthalidone 25 MG eCW1 ([facility]) Chlorthalidone 25 MG Oral Tablet Chlorthalidone 25 MG 2018 12:00:00 AM EST 1.0 {tablet_in_the_morning_with_food} active Chlorthalidone 25 MG eCW1 ([facility]) sildenafil 100 MG Oral Tablet Sildenafil Citrate 100 M G Sildenafil Citrate 100 MG 02/03/2019 12:00:00 AM EST 1.0 {tablet_as_needed} active Sildenafil Citrate 100 MG eCW1 ([facility]) Chlorthalidone 25 MG Oral Tablet Chlorthalidone 25 MG 2018 12:00:00 AM EST 1.0 {tablet_in_the_morning_with_food} active Chlorthalidone 25 MG eCW1 ([facility]) Chlorthalidone 25 MG Oral Tablet Chlorthalidone 25 MG 2018 12:00:00 AM EST 1.0 {tablet_in_the_morning_with_food} active Chlorthalidone 25 MG eCW1 ([facility]) Chlorthalidone 25 MG Oral Tablet Chlorthalidone 25 MG 2018 12:00:00 AM EST 1.0 {tablet_in_the_morning_with_food} active Chlorthalidone 25 MG eCW1 ([facility]) sildenafil 100 MG Oral Tablet Sildenafil Citrate 100 M G Sildenafil Citrate 100 MG 02/03/2019 12:00:00 AM EST 1.0 {tablet_as_needed} active Sildenafil Citrate 100 MG eCW1 ([facility]) 25 mg 11/25/2018 12:00:00 AM EDT tablet 90 TAKE ONE TABLET BY MOUTH EVERY MORNING TAKE ONE TABLET BY MOUTH EVERY MORNING SOLD: 02/23/2019 [facility] Escitalopram 5 MG Oral Tablet ESCITALOPRAM OXALATE 11/25/2018 12 :00:00 AM EDT tablet 90 TAKE 1 TABLET BY MOUTH ONCE A DAY TAKE 1 TABLET BY MOUTH ONCE A DAY SOLD: 02/23/2019 [facility] 5 mg 11/25/2018 12:00:00 AM EDT tablet 90 TAKE 1 TABLET BY MOUTH ONCE A DAY TAKE 1 TABLET BY MOUTH ONCE A DAY SOLD: 02/23/2019 [facility] Losartan Potassium 100 MG Oral Tablet LOSARTAN POTASSIUM 12:00:00 AM EDT tablet 90 TAKE 1 TABLET BY MOUTH ONCE A DAY TAKE 1 TABLET BY MOUTH ONCE A DAY SOLD: 02/23/2019 [facility] 0.005 % 2018 12:00:00 AM EDT drops 7 INSTILL ONE DROP INTO EACH EYE EVERY EVENING INSTILL ONE DROP INTO EACH EYE EVERY EVENING SOLD: 06/04/2019 [facility] atorvastatin 20 MG Oral Tablet ATORVASTATIN CALCIUM 05/22/2018 1 2:00:00 AM EDT tablet 90 TAKE ONE TABLET BY MOUTH ONCE A DAY TAKE ONE TABLET BY MOUTH ONCE A DAY SOLD: 02/23/2019 [facility] Insurance Providers Payer name Policy type / Coverage type Policy ID Covered libertarian ID Covered libertarian's relationship to abad Policy Abad Plan Information MEDICARE BLUE PPO 306 [id number] SP [id number] MEDICARE BLUE PPO 306 [id number] SP [id number] MEDICARE BLUE PPO [id number] SP [id number] MEDICARE BLUE PPO 306 [id number] SP [id number] [facility] B [id number] S VYM [id number] [facility] Medicare P [id number] SELF [id number] [facility]-Medicare Part B [id number] ANSI-Medicare Part B [id number] ANSI-Medicare Part B [id number] ANSI-Medicare Part B [id number] ANSI-Medicare Part B [id number] ANSI-Medicare Part B [id number] MEDICARE BLUE PPO 306 [id number] SP [id number] Blue Shield Medicare P [id number] SELF [id number] [employer] B [id number] S VYM [id number] Blue Shield Medicare P [id number] SELF [id number] MEDICARE BLUE PPO 306 [id number] SP [id number] MEDICARE BLUE PPO 306 [id number] SP [id number] [employer] MCR HMO MCR HMO [id number] S [id number] [employer] P [id number] S [id number] [id number] MEDICARE BLUE PPO 306 [id number] SP [id number] Problems, Conditions, and Diagnoses Code Display Name Description Problem Type Effective Dates Data Source(s) M75.41 [id number] Impingement syndrome of right shoulder Problem 03/18/2020 12:00:00 AM EST eCW1 ([facility]) Z12.11 [id number] Screening for colon cancer Problem 12:00:00 AM EST eCW1 ([facility]) N39.41 [id number] Urge incontinence Problem 02/10/2020 12:00:0 0 AM EST eCW1 ([facility]) N52.9 [id number] Erectile dysfunction, unspecifie d erectile dysfunction type Problem 02/03/2019 12:00:00 AM EST eCW1 ([facility]) H40.9 [id number] Glaucoma of both eyes, unspecified glauco ma type Problem 02/03/2019 12:00:00 AM EST eCW1 ([facility]) J45.30 Uncomplicated mild persistent asthma Mil d persistent asthma, unspecified whether complicated Problem 02/03/2019 12:00:00 AM EST eCW1 ([facility]) J45.30 Uncomplicated mild persistent asthma Mil d persistent asthma, unspecified whether complicated Problem 02/03/2019 12:00:00 AM EST eCW1 ([facility]) N52.9 [id number] Erectile dysfunction, unspecifie d erectile dysfunction type Problem 02/03/2019 12:00:00 AM EST eCW1 ([facility]) H40.9 [id number] Glaucoma of both eyes, unspecified glauco ma type Problem 02/03/2019 12:00:00 AM EST eCW1 ([facility]) Surgeries/Procedures Procedure Description Date Indications Data Source(s) Annual wellness visit, includes a person alized prevention plan of service (pps), subsequent visit 02/03/2019 12:00:00 AM EST eCW1 ([facility]) Results ID Date Data Source [id number] 03/19/2020 10:30:00 AM EST [facility] Name Value Range Interpretation Code Description Data Ana M rce(s) Supporting Document(s) SARS coronavirus 2 RNA Not Detected [facility] This lab was ordered by [facility] and reported by [facility]. ID Date Data Source Coronavirus 2019 NOSE (COVID) 12/24/2019 11:39:41 AM EDT eCW 1 ([facility]) Name Value Range Interpretation Code Description Data Ana M rce(s) Supporting Document(s) Testing was performed using the gordy(R) SARS-CoV-[address] CORONAVIRUS 2019 NOSE eCW1 ([facility]) ID Date Data Source [id number] 12/21/2019 12:44:00 PM EDT [facility] Name Value Range Interpretation Code Description Data Ana M rce(s) Supporting Document(s) SARS coronavirus 2 RNA [facility] This lab was ordered by [facility] and reported by [facility]. Procedure Social History Code Duration Value Status Description Data Source(s ) Smoking 03/18/2020 12:00:00 AM EST Former Smoker completed Former Smoker eCW1 ([facility]) Smoking 02/10/2020 12:00:00 AM EST Former Smoker completed Former Smoker eCW1 ([facility]) Smoking 02/10/2020 12:00:00 AM EST Former Smoker completed Former Smoker eCW1 ([facility]) Smoking 02/10/2020 12:00:00 AM EST Former Smoker completed Former Smoker eCW1 ([facility]) Smoking 12/29/2019 12:00:00 AM EDT Former Smoker completed Former Smoker eCW1 ([facility]) Smoking 12/29/2019 12:00:00 AM EDT Former Smoker completed Former Smoker eCW1 ([facility]) Smoking 12/29/2019 12:00:00 AM EDT Former Smoker completed Former Smoker eCW1 ([facility]) Smoking 12/21/2019 12:00:00 AM EDT Former Smoker completed Former Smoker eCW1 ([facility]) Smoking 12/21/2019 12:00:00 AM EDT Former Smoker completed Former Smoker eCW1 ([facility]) Smoking 12/21/2019 12:00:00 AM EDT Former Smoker completed Former Smoker eCW1 ([facility]) Smoking 07/24/2019 12:00:00 AM EDT Former Smoker completed Former Smoker eCW1 ([facility]) Vital Signs ID Date Data Source UNK Name Value Range Interpretation Code Description Data Source(s) Diastolic blood pressure 83 mm[Hg] 83 mm[Hg] eCW1 ([facility]) Systolic blood pressure 136 mm[Hg] 136 mm[Hg] e CW1 ([facility]) Body temperature 97.8 [degF] 97.8 [degF] eCW1 ( [facility]) Respiratory rate 98 /min 98 /min eCW1 ([facility]) Heart rate 18 /min 18 /min eCW1 ([facility], 1928–1983) Body mass index (BMI) [Ratio] 39.27 kg/m2 39.27 kg/m2 eCW1 ([facility]) Body height [in_i] eCW1 ([facility]) Body weight 247 [lb_av] 247 [lb_av] eCW1 ([facility]) Body surface area Derived from formula 2.23 m2 2.23 m2 MEDENT ([facility], ) Body weight 114.761 kg 114.761 kg MEDENT ([facility], ) [place] body weight 148 [lb_av] 148 [lb_av] MEDEN T ([facility], ) Body mass index (BMI) [Ratio] 39.6 kg/m2 39.6 k g/m2 [facility] Body weight 253.00 [lb_av] 253.00 [lb_av] MEDEN T ([facility]) Body height 67 [in_i] 67 [in_i] [facility]" Diastolic blood pressure 60 mm[Hg] 60 mm[Hg] MEDENT ([facility]) Systolic blood pressure 120 mm[Hg] 120 mm[Hg] M EDENT ([facility]) Diastolic blood pressure 84 mm[Hg] 84 mm[Hg] eCW1 ([facility]) Systolic blood pressure 126 mm[Hg] 126 mm[Hg] e CW1 ([facility]) Body temperature 98 [degF] 98 [degF] eCW1 ([facility]) Respiratory rate 18 /min 18 /min eCW1 ([facility]) Heart rate 60 /min 60 /min eCW1 ([facility], 1928–1983) Body mass index (BMI) [Ratio] 39.74 kg/m2 39.74 kg/m2 eCW1 ([facility]) Body height [in_i] eCW1 ([facility]) Body weight 250 [lb_av] 250 [lb_av] eCW1 ([facility]) Diastolic blood pressure 76 mm[Hg] 76 mm[Hg] eCW1 ([facility]) Systolic blood pressure 127 mm[Hg] 127 mm[Hg] e CW1 ([facility]) Body temperature 98.7 [degF] 98.7 [degF] eCW1 ( [facility]) Respiratory rate 20 /min 20 /min eCW1 ([facility]) Heart rate 64 /min 64 /min eCW1 ([facility], 1928–1983) Body mass index (BMI) [Ratio] 40.06 kg/m2 40.06 kg/m2 W1 ([facility]) Body height [in_i] eCW1 ([facility]) Body weight 252 [lb_av] 252 [lb_av] eCW1 ([facility]) Diastolic blood pressure 90 mm[Hg] 90 mm[Hg] eCW1 ([facility]) Systolic blood pressure 147 mm[Hg] 147 mm[Hg] e CW1 ([facility]) Body temperature 100.2 [degF] 100.2 [degF] eCW1 ([facility]) Respiratory rate 22 /min 22 /min eCW1 ([facility]) Heart rate 68 /min 68 /min eCW1 ([facility], 1928–1983) Body mass index (BMI) [Ratio] 40.06 kg/m2 40.06 kg/m2 eCW1 ([facility]) Body height [in_i] eCW1 ([facility]) Body weight 252 [lb_av] 252 [lb_av] eCW1 ([facility]) Diastolic blood pressure 76 mm[Hg] 76 mm[Hg] eCW1 ([facility]) Systolic blood pressure 122 mm[Hg] 122 mm[Hg] e CW1 ([facility]) Body temperature 97.8 [degF] 97.8 [degF] eCW1 ( [facility]) Respiratory rate 20 /min 20 /min eCW1 ([facility]) Heart rate 55 /min 55 /min eCW1 ([facility], 1928[facility]) Body mass index (BMI) [Ratio] 39.90 kg/m2 39.90 kg/m2 eCW1 ([facility]) Body height [in_i] eCW1 ([facility]) Body weight 251 [lb_av] 251 [lb_av] eCW1 ([facility]) Diastolic blood pressure 76 mm[Hg] 76 mm[Hg] eCW1 ([facility]) Systolic blood pressure 146 mm[Hg] 146 mm[Hg] e CW1 ([facility]) Body temperature [degF] eCW1 ([facility]) Respiratory rate 20 /min 20 /min eCW1 ([facility]) Heart rate 56 /min 56 /min eCW1 ([facility], 1928[facility]1983) Body mass index (BMI) [Ratio] 40.38 kg/m2 40.38 kg/m2 eCW1 ([facility]) Body height [in_us] eCW1 ([facility]) Body weight Measured 254 [lb_av] 254 [lb_av] eC W1 ([facility]) Patient Treatment Plan of Care Planned Activity Planned Date Details Description Data Source (s) Doxycycline Monohydrate 100 MG Oral Capsule 12/21/2019 12:00:00 AM EDT eCW1 ([facility]) Prednisone 10 MG Oral Tablet 12/21/2019 12:00:00 AM EDT eCW1 ([facility]) benzonatate 100 MG Oral Capsule [Tessalon Perles] 12/21/2019 12: 00:00 AM EDT eCW1 ([facility]) Doxycycline Monohydrate 100 MG Oral Capsule 12/21/2019 12:00:00 AM EDT eCW1 ([facility]) Doxycycline Monohydrate 100 MG Oral Capsule 12/21/2019 12:00:00 AM EDT eCW1 ([facility]) Prednisone 10 MG Oral Tablet 12/21/2019 12:00:00 AM EDT eCW1 ([facility]) benzonatate 100 MG Oral Capsule [Tessalon Perles] 12/21/2019 12: 00:00 AM EDT eCW1 ([facility]) Doxycycline Monohydrate 100 MG Oral Capsule 12/21/2019 12:00:00 AM EDT eCW1 ([facility]) Doxycycline Monohydrate 100 MG Oral Capsule 12/21/2019 12:00:00 AM EDT eCW1 ([facility]) Prednisone 10 MG Oral Tablet 12/21/2019 12:00:00 AM EDT eCW1 ([facility]) benzonatate 100 MG Oral Capsule [Tessalon Perles] 12/21/2019 12: 00:00 AM EDT eCW1 ([facility]) Doxycycline Monohydrate 100 MG Oral Capsule 12/21/2019 12:00:00 AM EDT eCW1 ([facility]) Chlorthalidone 25 MG Oral Tablet 02/03/2019 12:00:00 AM EST eCW1 ([facility]) sildenafil 100 MG Oral Tablet 02/03/2019 12:00:00 AM EST eCW1 ([facility]) Chlorthalidone 25 MG Oral Tablet 02/03/2019 12:00:00 AM EST eCW1 ([facility]) sildenafil 100 MG Oral Tablet 02/03/2019 12:00:00 AM EST eCW1 ([facility]) Chlorthalidone 25 MG Oral Tablet 02/03/2019 12:00:00 AM EST eCW1 ([facility]) sildenafil 100 MG Oral Tablet 02/03/2019 12:00:00 AM EST eCW1 ([facility]) sildenafil 100 MG Oral Tablet 02/03/2019 12:00:00 AM EST eCW1 ([facility]) Chlorthalidone 25 MG Oral Tablet 02/03/2019 12:00:00 AM EST eCW1 ([facility])
[2020-03-24] MEDS ORDERED: PRAV20TA2 PO (09:11)
[2020-03-24] MEDS ORDERED: propofoL 200 MG/20 ML VIAL As Ordered ONE (10:28)
--- NOTE | 2020-03-24 10:47 | ROOR ---
Patient Name: Hakeem Styles Procedure Date: 03/24/2020 9:43 AM Date of : 1945 Age: 74 Room: [facility] Gender: Male Note Status: Finalized Procedure: Colonoscopy Indications: High risk colon cancer surveillance: Personal history of colonic polyps, Last colonoscopy: January 2012 Providers: Jaziel Pickering MD Referring MD: Alireza Lara MD Requesting Provider: Medicines: Monitored Anesthesia Care Complications: No immediate complications. Procedure: Pre-Anesthesia Assessment: - Prior to the procedure, a History and Physical was performed, and patient medications and allergies were reviewed. The patient is competent. The risks and benefits of the procedure and the sedation options and risks were discussed with the patient. All questions were answered and informed consent was obtained. Patient identification and proposed procedure were verified by the physician, the nurse and the anesthesiologist in the procedure room. Mental Status Examination: alert and oriented. Prophylactic Antibiotics: The patient does not require prophylactic antibiotics. Prior Anticoagulants: The patient has taken no previous anticoagulant or antiplatelet agents. ASA Grade Assessment: III - A patient with severe systemic disease. After reviewing the risks and benefits, the patient was deemed in satisfactory condition to undergo the procedure. The anesthesia plan was to use monitored anesthesia care (MAC). Immediately prior to administration of medications, the patient was re-assessed for adequacy to receive sedatives. The heart rate, respiratory rate, oxygen saturations, blood pressure, adequacy of pulmonary ventilation, and response to care were monitored throughout the procedure. The physical status of the patient was re-assessed after the procedure. The Colonoscope was introduced through the anus and advanced to the cecum, identified by appendiceal orifice and ileocecal valve. The colonoscopy was performed without difficulty. The patient tolerated the procedure well. The quality of the bowel preparation was good. Findings: The perianal and digital rectal examinations were normal. Six sessile polyps were found in the proximal transverse colon and ascending colon. The polyps were 3 to 8 mm in size. These polyps were removed with a hot snare. Resection was complete, but the polyp tissue was only partially retrieved. Estimated blood loss: none. A 8 mm polyp was found in the distal transverse colon. The polyp was sessile. The polyp was removed with a hot snare. Resection was complete, but the polyp tissue was only partially retrieved. Estimated blood loss: none. Multiple medium-mouthed diverticula were found in the sigmoid colon and hepatic flexure. A 4 mm polyp was found in the rectum. The polyp was sessile. The polyp was removed with a hot snare. Resection and retrieval were complete. Estimated blood loss: none. Impression: - Six 3 to 8 mm polyps in the proximal transverse colon and in the ascending colon, removed with a hot snare. Complete resection. Partial retrieval. - One 8 mm polyp in the distal transverse colon, removed with a hot snare. Complete resection. Partial retrieval. - Diverticulosis in the sigmoid colon and at the hepatic flexure. - One 4 mm polyp in the rectum, removed with a hot snare. Resected and retrieved. Recommendation: - Discharge patient to home. - Resume previous diet. - Continue present medications. - Await pathology results. Procedure Code(s): --- Professional --- 92400, Colonoscopy, flexible; with removal of tumor(s), polyp(s), or other lesion(s) by snare technique Diagnosis Code(s): --- Professional --- Z86.010, Personal history of colonic polyps K63.5, Polyp of colon K62.1, Rectal polyp K57.30, Diverticulosis of large intestine without perforation or abscess without bleeding CPT copyright 2019 [employer]. All rights reserved. The codes documented in this report are preliminary and upon hydroelectric mechanic review may be revised to meet current compliance requirements. Jaziel Pickering MD Jaziel Pickering MD 03/24/2020 10:47:00 AM Electronically signed by Jaziel Pickering MD Number of Addenda: 0 Note Initiated On: 03/24/2020 9:43 AM Estimated Blood Loss: Estimated blood loss: none.
[2020-03-24 11:12] VITALS: BP 138/70
== END 2020-03-24 11:13 | disposition home or self-care (01) ==
LOC: M OPP 08:34
PROVIDERS: ATTEND Surgery
DX: Z12.11 Encounter for screening for malignant neoplasm of colon (principal); Z86.010 Personal history of colon polyps; K63.5 Polyp of colon; K57.30 Diverticulosis of large intestine without perforation or abscess without bleeding; I10 Essential (primary) hypertension; E78.5 Hyperlipidemia, unspecified; M19.90 Unspecified osteoarthritis, unspecified site; F32.9 Major depressive disorder, single episode, unspecified; J45.909 Unspecified asthma, uncomplicated; G47.30 Sleep apnea, unspecified; Z87.891 Personal history of nicotine dependence; Z79.82 Long term (current) use of aspirin; Z79.899 Other long term (current) drug therapy

== ENCOUNTER → 2020-03-31 | Outpatient (CLI) | payer MEDICARE ==
[~2020-03-31] MED LIST changes: -LIDOCAINE 2% 100MG/5ML SDV (FOR ANES.) As Ordered ONE; -NS 1,000 ML IV ONE; +PRAV20TA2 PO; -propofoL 200 MG/20 ML VIAL As Ordered ONE
== END ==
LOC: M LABSMTC 09:55
PROVIDERS: ATTEND Anesthesiology
DX: Z01.812 Encounter for preprocedural laboratory examination (principal); Z20.822 Contact with and (suspected) exposure to COVID-19

== ENCOUNTER 2020-04-05 10:46 | Day surgery (SDC) | payer MEDICARE ==
[~2020-04-05] VITALS: Ht 167.6 cm; Wt 110.1 kg
[~2020-04-05 10:46] MED LIST changes: +BUPIVACAINE HCL 0.25% 30ML VIAL As Ordered ONE; +LR 1,000 ML IV ONE
[2020-04-05 11:48] LABS: HEMATOCRIT 43.2 % (42.0-52.0); HEMOGLOBIN 15.1 g/dl (13.5-17.5); MEAN CORPUSCULAR HEMOGLOBIN 33.3 pg (27.0-33.0); MEAN CORPUSCULAR VOLUME 95.2 fl (80.0-96.0); PLATELET COUNT, AUTOMATED 159 10^3/uL (150-450); RED BLOOD COUNT 4.54 10^6/uL (4.30-6.10); WHITE BLOOD COUNT 7.2 10^3/uL (4.0-10.0)
[2020-04-05 12:13] LABS: BLOOD UREA NITROGEN 15 MG/DL (7-18); CARBON DIOXIDE LEVEL 32 MEQ/L (21-32); CHLORIDE LEVEL 105 MEQ/L (98-107); GLOMERULAR FILTRATION RATE > 60.0 (>42); GLUCOSE, FASTING 107 MG/DL (70-100); POTASSIUM SERUM 3.4 MEQ/L (3.5-5.1); SODIUM LEVEL 140 MEQ/L (136-145)
[2020-04-05 12:14] LABS: CALCIUM LEVEL 9.2 MG/DL (8.8-10.2)
[2020-04-05] MEDS ORDERED: propofoL 200 MG/20 ML VIAL As Ordered ONE (12:40)
[2020-04-05] MEDS ORDERED: LACRILUBE (AKWA TEARS) OPHTH OINT 3.5 GM As Ordered ONE (12:40)
[2020-04-05] MEDS ORDERED: ACETAMINOPHEN 1000MG 100ML IV BTL (OFIRMEV) (J0131 PER 10MG) As Ordered ONE (12:40)
[2020-04-05] MEDS ORDERED: ROCURONIUM BROMIDE 50 MG/5 ML VIAL As Ordered ONE ×2 (12:40→14:40)
[2020-04-05] MEDS ORDERED: LIDOCAINE 2% 100MG/5ML SDV (FOR ANES.) As Ordered ONE (12:40)
[2020-04-05] MEDS ORDERED: ONDANSETRON 4MG/2ML VIAL As Ordered ONE (12:40)
[2020-04-05] MEDS ORDERED: dexameTHASONE 4 MG/ML 1ML VIAL (J1100 PER 1MG) As Ordered ONE (12:40)
[2020-04-05] MEDS ORDERED: MIDAZOLAM INJ 2MG/2ML VIAL (J2250 PER 1MG) As Ordered ONE (12:42)
[2020-04-05] MEDS ORDERED: fentaNYL 100 MCG/2 ML INJECTION (J3010) As Ordered ONE ×2 (12:42→15:34)
[2020-04-05] MEDS ORDERED: ePHEDrine SULFATE 25 MG/5 ML(5MG/ML) SYRINGE As Ordered ONE ×2 (14:38→15:35)
[2020-04-05] MEDS ORDERED: SUGAMMADEX SODIUM 500 MG/5 ML VIAL (BRIDION) As Ordered ONE ×2 (15:27→15:29)
[2020-04-05] MEDS ORDERED: KETOROLAC 60MG 2ML VIAL As Ordered ONE (15:27)
[2020-04-05] MEDS ORDERED: METOCLOPRAMIDE INJ 10MG/2ML VIAL (J2765 PER 1) As Ordered ONE (15:28)
[2020-04-05] MEDS ORDERED: ONDANSETRON 4MG/2ML VIAL IV PRN (16:15)
[2020-04-05] MEDS ORDERED: fentaNYL 100 MCG/2 ML INJECTION (J3010) IV PRN (16:15)
[2020-04-05] MEDS ORDERED: LR 1,000 ML IV SCH (16:15)
[2020-04-05] MEDS ORDERED: oxyCODONE 5MG TAB PO PRN (16:15)
[2020-04-05] MEDS ORDERED: HYDROMORPHONE HCL 0.5 MG/ 0.5 ML SYRINGE (J1170 PER 1) IV PRN (16:15)
--- NOTE | 2020-04-05 16:16 | ECGEPIP ---
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 Nonspecific ST/T wave abnormalities No prior tracing for comparison. Clincal correlation advised Electronically Signed on 04-05-2020 16:16:32 EST by Michael Mackenzie
[2020-04-05 17:38] VITALS: BP 116/70
--- NOTE | 2020-04-06 08:14 | RO ---
OPERATIVE NOTE DATE OF OPERATION: 04/05/2020 PREOPERATIVE DIAGNOSIS: Recurrent right inguinal hernia. POSTOPERATIVE DIAGNOSIS: Recurrent right inguinal hernia consisting of medial direct recurrence. PROCEDURE PERFORMED: Robotic-assisted laparoscopic repair of recurrent right inguinal hernia with mesh. Mesh utilized was ProGrip, reference code [id number], lot #[id number]. SURGEON: Jaziel Pickering MD CHILD ADOLESCENT PSYCHIATRIST: ANGELIA Orellana was essential for management of the robotic instruments to include change of instruments, passage of sutures and the mesh and she also closed the surgical incisions. ANESTHESIA: General. INDICATIONS FOR PROCEDURE: The patient is a 74-year-old man who had undergone right inguinal hernia repair some 6-8 years ago. He developed a small recurrence and is now for robotic-assisted repair. DESCRIPTION OF PROCEDURE: The patient was brought to the operating room and placed on the table in supine position. He was placed under general endotracheal anesthesia. The patient's abdomen, groins and genitalia were prepped and draped in sterile fashion. 0.25% Marcaine was infiltrated into the trocar sites as needed. A short supraumbilical midline incision was made and Veress needle was inserted. After positive hanging drop test the abdomen was inflated with carbon dioxide gas. An 8 mm robotic port was placed over a 5 mm scope and advanced through the abdominal wall without difficulty. Initial examination showed few filmy adhesions in the left mid to lower abdomen. The view of the inguinal region was obscured by bowel and fat. A second 8 mm port was placed in the right upper quadrant and third 8 mm port was placed in left upper quadrant. The patient was tilted to an approximately 15 degree Trendelenburg position. He was also rolled slightly to the left. The patient cart of the da Cameron Xi robot was brought into position and the endoscope port was docked. Targeting took place in the right side of the pelvis. The additional robotic arms were docked. A cauterizing scissor and fenestrated bipolar were inserted. I then moved to the control console to proceed with the operation. A few filmy adhesions to the omentum were lysed to improve the inspection in the left lower quadrant. There was no sign of significant peritoneal sac on the left. On the right-hand side there was a definite medial hernia sac. A peritoneal flap was begun approximately 5 cm above the top edge of the anticipated location of the hernia defect. The peritoneum was incised with the cauterizing scissors beginning at the medial umbilical ligament and this was then carried laterally and then inferiorly toward the anterior superior iliac spine. The preperitoneal space was opened. Medially the dissection was carried down to expose the pubic symphysis and David's ligament. The lateral aspect of the dissection was then carried out completing the lateral aspect of the flap. This left the hernia sac to be addressed. With some traction on the sac this was carefully dissected away from the inguinal floor and the underlying cord and vascular structures. The patient was found to have a definite medial recurrence of his hernia which was about 2 to 2.5 cm in diameter. The hernia sac was quite fatty with evidence for herniation of preperitoneal fat as well. This was all reduced en edgar completely with the hernia sac intact. I elected to close the hernia defect to provide better support for the mesh placement. This was accomplished with 2-0 V-Loc suture which was begun at the medial end of the inguinal floor and carried laterally as far as possible and then returned back to the medial end. A piece of ProGrip mesh as previously identified was selected and the corners were trimmed slightly. This was inserted into the abdomen and placed into the preperitoneal space. This was centered over the area of the sutured hernia defect. There was excellent coverage of the inguinal floor. Medially this extended over to the pubic symphysis and inferior to the David's ligament. The adherent side of the mesh was gently pressed into the soft tissues of the inguinal floor. The intraabdominal pressure was then reduced to 10 mmHg. I began the closure of the peritoneal flap at the lateral end using running suture of 2-0 V-Loc. As the suture was carried medially the patient was gradually returned to flat position. The intraabdominal pressure was additionally reduced to 8 mmHg. The closure was completed. With the patient now in very slight reverse Trendelenburg position an aspirating needle was inserted through the right-sided port. I directed this through the peritoneum into the preperitoneal space and Geraldine Sterling aspirated the air contained in the preperitoneal space to allow the peritoneum to close in over the mesh more securely. The aspirating needle was removed. The remaining robotic instrument was removed. The patient cart was undocked and withdrawn. Geraldine Sterling then proceeded to deflate the abdomen and remove the trocars. She then closed the skin incisions with buried sutures of 4-0 Vicryl and Steri-Strips. Light dressings were applied. The patient tolerated the procedure well without apparent complications. He was awakened in the operating room, extubated and moved to the recovery room in stable condition. FRANCISCO
== END 2020-04-05 17:38 | disposition home or self-care (01) ==
LOC: M SDC 10:46
PROVIDERS: ATTEND Surgery
DX: K40.91 Unilateral inguinal hernia, without obstruction or gangrene, recurrent (principal); I10 Essential (primary) hypertension; F32.9 Major depressive disorder, single episode, unspecified; Z87.891 Personal history of nicotine dependence; E78.5 Hyperlipidemia, unspecified; J45.20 Mild intermittent asthma, uncomplicated; G47.30 Sleep apnea, unspecified; Z79.899 Other long term (current) drug therapy
CPT/HCPCS: 36415; 49651; 80048; 85027; 93005; C1781; J0131; J1100; J1885; J2250; J2405; J2765; J3010; S2900

== ENCOUNTER → 2020-05-05 | Outpatient (REF) | payer MEDICARE ==
[~2020-05-05] MED LIST changes: -BUPIVACAINE HCL 0.25% 30ML VIAL As Ordered ONE; -LR 1,000 ML IV ONE
[2020-05-05 17:06] LABS: FREE T4 0.88 NG/DL (0.76-1.46); THYROID STIMULATING HORMONE 2.18 uIU/ML (0.358-3.740)
== END ==
LOC: M SFHCCLAY 09:52
PROVIDERS: ATTEND Family Medicine
DX: R79.89 Other specified abnormal findings of blood chemistry (principal); Z79.899 Other long term (current) drug therapy

== ENCOUNTER → 2020-11-02 | Outpatient (CLI) | payer MEDICARE ==
[~2020-11-02] MED LIST changes: +ETOD-173; -ETOD400T
--- NOTE | 2020-11-02 15:00 | REP ---
INDICATION: ACUTE LFT SIDED LOW BACK PAIN COMPARISON: Correlation with MRI dated 07/11/2016 TECHNIQUE: AP, lateral, bilateral oblique, and coned-down views of the lumbar spine. FINDINGS: Alignment and lordosis maintained and there is no evidence for acute fracture/compression injury or subluxation. Moderate to advanced multilevel degenerative spondylosis with endplate sclerosis, osteophytosis, disc space narrowing and facet hypertrophy most notably involving L4-5 and L5-S1. IMPRESSION: Moderate to advanced multilevel degenerative spondylosis. Consider MRI for further investigation if necessary. <Electronically signed by Deangelo Hyatt > 11/02/20 [id number]
== END ==
LOC: M CLY 14:29
PROVIDERS: ATTEND Physician Assistant
DX: M47.816 Spondylosis without myelopathy or radiculopathy, lumbar region (principal); M54.42 Lumbago with sciatica, left side

== ENCOUNTER → 2020-11-08 | Outpatient (REF) | payer MEDICARE ==
[~2020-11-08] MED LIST changes: +LOSA100T45; +LOSA100T45 PO; -LOSA100T50; -LOSA100T50 PO
[2020-11-09 13:02] LABS: ALBUMIN 3.7 GM/DL (3.2-5.2); ALT/SGPT 45 U/L (12-78); BILIRUBIN,TOTAL 0.8 MG/DL (0.2-1.0); BLOOD UREA NITROGEN 25 MG/DL (7-18); CALCIUM LEVEL 9.2 MG/DL (8.8-10.2); CARBON DIOXIDE LEVEL 32 MEQ/L (21-32); CHLORIDE LEVEL 102 MEQ/L (98-107); CREATININE FOR GFR 1.08 MG/DL (0.70-1.30); GLOMERULAR FILTRATION RATE > 60.0 (>42); GLUCOSE, FASTING 128 MG/DL (70-100); POTASSIUM SERUM 4.5 MEQ/L (3.5-5.1); SODIUM LEVEL 138 MEQ/L (136-145); TOTAL PROTEIN 6.3 GM/DL (6.4-8.2)
== END ==
LOC: EDSEX → M SFHCPLAZ 14:48
PROVIDERS: ATTEND Physician Assistant
DX: M54.42 Lumbago with sciatica, left side (principal)

== ENCOUNTER 2020-11-12 11:27 | Emergency (ER) | payer MEDICARE ==
[~2020-11-12] VITALS: Ht 167.6 cm; Wt 109.1 kg
[2020-11-12 11:27] VITALS: BP 174/98
[~2020-11-12 11:27] MED LIST changes: -LOSA100T45; -LOSA100T45 PO; +LOSA100T50; +LOSA100T50 PO
[2020-11-12] MEDS ORDERED: ONDANSETRON 4MG/2ML VIAL IV ONE (12:05)
[2020-11-12 12:42] LABS: BASO # 0.1 10^3/uL (0.0-0.2); BASO % 0.5 % (0.0-1.0); EOS % 0.4 % (0.0-3.0); HEMATOCRIT 47.1 % (42.0-52.0); HEMOGLOBIN 16.6 g/dl (13.5-17.5); LYMPH # 1.2 10^3/uL (1.5-5.0); LYMPH % 11.7 % (24.0-44.0); MEAN CORPUSCULAR HEMOGLOBIN 33.3 pg (27.0-33.0); MEAN CORPUSCULAR HGB CONC 35.2 g/dl (32.0-36.5); MEAN CORPUSCULAR VOLUME 94.6 fl (80.0-96.0); MONO # 0.6 10^3/uL (0.0-0.8); MONO % 5.6 % (2.0-8.0); NEUTROPHILS # 8.5 10^3/uL (1.5-8.5); NEUTROPHILS % 81.3 % (36.0-66.0); PLATELET COUNT, AUTOMATED 184 10^3/uL (150-450); RED BLOOD COUNT 4.98 10^6/uL (4.30-6.10); WHITE BLOOD COUNT 10.5 10^3/uL (4.0-10.0)
[2020-11-12] MEDS: MORPHINE 2 MG/ML 1ML VIAL (J2270) IV PRN ×2 (13:05→16:40)
--- NOTE | 2020-11-12 13:39 | REPVR ---
PROCEDURE INFORMATION: Exam: MR Lumbar Spine Without and With Contrast Exam date and time: 11/12/2020 1:21 PM Age: 75 years old Clinical indication: Other: Back pain radiating to left leg TECHNIQUE: Imaging protocol: Multiplanar magnetic resonance images of the lumbar spine without and with intravenous contrast. COMPARISON: MRI-Spine, L.S. without con 07/11/2016 2:51 PM FINDINGS: Limitations: Limited exam due to the patient's only being able to tolerate T1 sagittal and T1 and STIR images no axial imaging and no post contrast imaging was acquired. There is also motion artifact. Moderate central encroachment at L3-L4. Vertebrae: I see no evidence of acute fracture line, high-grade compression deformity, marrow edema. Limited retrolisthesis of L3 on L4 and L4 on L5. Spinal epidural space: No definite epidural fluid. Spinal cord: The conus terminates L1 without abnormal cord signal. Disc spaces: Disc desiccation at multiple levels with disc space loss most pronounced at L4-L5. Bulging discs at multiple levels without high-grade central stenosis. Soft tissues: Increased T2 and diminished T1 signal along the posterior subcutaneous fat L1 through L3 could be due to mild cellulitis. IMPRESSION: Limited exam. Please see the above discussion. Electronically signed by: Bradley Mena On 11/12/2020 13:38:45 PM
[2020-11-12] MEDS ORDERED: PERCOCET 5MG/325MG TAB PO ONE (13:45)
--- NOTE | 2020-11-13 08:01 | ED PDOC ---
Post-Departure Follow-Up radiology report faxed to Chaya Elliott MD Nov 13, 2020 08:01
== END 2020-11-12 19:42 | disposition home or self-care (01) ==
LOC: M ED 11:27
DX: M51.36 Other intervertebral disc degeneration, lumbar region (principal); M51.37 Other intervertebral disc degeneration, lumbosacral region; M48.061 Spinal stenosis, lumbar region without neurogenic claudication; I10 Essential (primary) hypertension
CPT/HCPCS: 72158; 80047; 85025; 96374; 96375; 96376; 99283; J2270; J2405

== ENCOUNTER → 2021-07-28 | Outpatient (REF) | payer MEDICARE ==
[~2021-07-28] MED LIST changes: +LOSA100T45; +LOSA100T45 PO; -LOSA100T50; -LOSA100T50 PO
[2021-07-28 11:58] LABS: BASO # 0.1 10^3/uL (0.0-0.2); BASO % 0.7 % (0.0-1.0); EOS # 0.3 10^3/uL (0.0-0.5); EOS % 4.2 % (0.0-3.0); HEMATOCRIT 46.2 % (42.0-52.0); HEMOGLOBIN 16.1 g/dl (13.5-17.5); LYMPH # 2.1 10^3/uL (1.5-5.0); LYMPH % 26.2 % (24.0-44.0); MEAN CORPUSCULAR HEMOGLOBIN 33.1 pg (27.0-33.0); MEAN CORPUSCULAR HGB CONC 34.8 g/dl (32.0-36.5); MEAN CORPUSCULAR VOLUME 94.9 fl (80.0-96.0); MONO # 0.7 10^3/uL (0.0-0.8); NEUTROPHILS # 4.8 10^3/uL (1.5-8.5); NEUTROPHILS % 59.4 % (36.0-66.0); PLATELET COUNT, AUTOMATED 170 10^3/uL (150-450); RED BLOOD COUNT 4.87 10^6/uL (4.30-6.10); WHITE BLOOD COUNT 8.1 10^3/uL (4.0-10.0)
[2021-07-28 12:00] LABS: APPEARANCE, URINE CLEAR (CLEAR); BACTERIA, URINE AUTO NEGATIVE (NEGATIVE); BILIRUBIN, URINE AUTO NEGATIVE (NEGATIVE); BLOOD, URINE BLOOD NEGATIVE (NEGATIVE); COLOR, URINE YELLOW (YELLOW); GLUCOSE, URINE (UA) AUTO NEGATIVE (NEGATIVE); KETONE, URINE AUTO NEGATIVE (NEGATIVE); LEUKOCYTE ESTERASE, URINE AUTO NEGATIVE (NEGATIVE); MUCUS, URINE SMALL (NEGATIVE); NITRITE, URINE AUTO NEGATIVE (NEGATIVE); PROTEIN, URINE AUTO NEGATIVE (NEGATIVE); RBC, URINE AUTO 0 /HPF (0-3); SPECIFIC GRAVITY URINE AUTO 1.018 (1.002-1.035); SQUAMOUS EPITHELIAL CELL UR AU 0 /HPF (0-6); UROBILINOGEN, URINE AUTO 0.2 mg/dL (0.0-2.0); WBC, URINE AUTO 1 /HPF (0-3)
[2021-07-28 12:13] LABS: HEMOGLOBIN A1c 5.7 %
[2021-07-28 12:38] LABS: ALBUMIN 3.7 GM/DL (3.2-5.2); ALT/SGPT 35 U/L (12-78); BILIRUBIN,TOTAL 0.7 MG/DL (0.2-1.0); BLOOD UREA NITROGEN 20 MG/DL (7-18); CALCIUM LEVEL 9.2 MG/DL (8.8-10.2); CARBON DIOXIDE LEVEL 30 MEQ/L (21-32); CHLORIDE LEVEL 103 MEQ/L (98-107); CHOLESTEROL LEVEL 148 MG/DL (<200); CHOLESTEROL RISK RATIO 3.083 (<5); CREATININE FOR GFR 1.02 MG/DL (0.70-1.30); FREE T4 0.83 NG/DL (0.76-1.46); GLOMERULAR FILTRATION RATE > 60.0 (>42); GLUCOSE, FASTING 126 MG/DL (70-100); HDL CHOLESTEROL 48 MG/DL (>40); LDL CHOLESTEROL 78 MG/DL (<100); NON-HDL-C 100 MG/DL; POTASSIUM SERUM 3.6 MEQ/L (3.5-5.1); SODIUM LEVEL 142 MEQ/L (136-145); TOTAL PROTEIN 6.6 GM/DL (6.4-8.2); TRIGLYCERIDES LEVEL 112 MG/DL (<150)
[2021-07-28 12:45] LABS: MALB URINE SIEMENS 9.2 MG/L; MAU/CREAT RATIO 6.3 MCG/MG (0.0-30.0)
== END ==
LOC: M SFHCCLAY 07:54
PROVIDERS: ATTEND Family Medicine
DX: E11.9 Type 2 diabetes mellitus without complications (principal); I10 Essential (primary) hypertension; G47.33 Obstructive sleep apnea (adult) (pediatric)

== ENCOUNTER → 2021-09-26 | Outpatient (REF) | payer MEDICARE ==
[2021-09-26 17:35] LABS: FREE T4 0.81 NG/DL (0.76-1.46); MAGNESIUM LEVEL 2.3 MG/DL (1.8-2.4); THYROID STIMULATING HORMONE 2.96 uIU/ML (0.358-3.740)
== END ==
LOC: M SFHCCLAY 09:36
PROVIDERS: ATTEND Family Medicine
DX: I49.8 Other specified cardiac arrhythmias (principal); R79.89 Other specified abnormal findings of blood chemistry

== ENCOUNTER → 2022-02-09 | Outpatient (REF) | payer MEDICARE ==
[2022-02-09 18:41] LABS: BASO # 0.1 10^3/uL (0.0-0.2); BASO % 0.8 % (0.0-1.0); EOS # 0.4 10^3/uL (0.0-0.5); EOS % 5.8 % (0.0-3.0); HEMATOCRIT 44.4 % (42.0-52.0); HEMOGLOBIN 15.1 g/dl (13.5-17.5); LYMPH # 1.7 10^3/uL (1.5-5.0); LYMPH % 23.3 % (24.0-44.0); MEAN CORPUSCULAR HEMOGLOBIN 32.8 pg (27.0-33.0); MEAN CORPUSCULAR VOLUME 96.5 fl (80.0-96.0); MONO % 13.2 % (2.0-8.0); NEUTROPHILS # 4.1 10^3/uL (1.5-8.5); NEUTROPHILS % 56.3 % (36.0-66.0); PLATELET COUNT, AUTOMATED 150 10^3/uL (150-450); WHITE BLOOD COUNT 7.3 10^3/uL (4.0-10.0)
[2022-02-09 18:46] LABS: APPEARANCE, URINE MANUAL CLEAR (CLEAR); BILIRUBIN, URINE MANUAL NEGATIVE (NEGATIVE); BLOOD URINE MANUAL NEGATIVE (NEGATIVE); COLOR, URINE MANUAL YELLOW (YELLOW); GLUCOSE, URINE (UA) MANUAL NEGATIVE (NEGATIVE); KETONE, URINE MANUAL NEGATIVE (NEGATIVE); LEUKOCYTE ESTERASE, URINE MAN NEGATIVE (NEGATIVE); NITRITE, URINE MANUAL NEGATIVE (NEGATIVE); PH,URINE MAN 6.5 UNITS (5.0 - 7.0); PROTEIN, URINE MANUAL NEGATIVE (NEGATIVE); SPECIFIC GRAVITY,URINE MANUAL 1.015 (1.002-1.035); UROBILINOGEN, URINE MANUAL NORMAL (NORMAL)
[2022-02-09 19:25] LABS: CREATININE, URINE 154.6 MG/DL
[2022-02-09 19:26] LABS: MAU/CREAT RATIO 3.8 MCG/MG (0.0-30.0)
[2022-02-09 19:31] LABS: ALBUMIN 3.7 G/DL (3.2-5.2); ALKALINE PHOSPHATASE 89 U/L (46-116); ALT/SGPT 39 U/L (7.0-40); AST/SGOT 29 U/L (<34); BILIRUBIN,TOTAL 0.8 MG/DL (0.3-1.2); BLOOD UREA NITROGEN 15 MG/DL (9-23); CARBON DIOXIDE LEVEL 31 MMOL/L (20-31); CHLORIDE LEVEL 102 MMOL/L (98-107); CHOLESTEROL LEVEL 139 MG/DL (<200); CHOLESTEROL RISK RATIO 3.08 (<5); CREATININE FOR GFR 0.87 MG/DL (0.70-1.30); GLOMERULAR FILTRATION RATE > 60.0 (>42); GLUCOSE, FASTING 125 MG/DL (74-106); NON-HDL-C 94 MG/DL; POTASSIUM SERUM 3.9 MMOL/L (3.5-5.1); SODIUM LEVEL 139 MMOL/L (136-145); THYROID STIMULATING HORMONE 3.521 uIU/ML (0.55-4.78); TOTAL PROTEIN 6.3 G/DL (5.7-8.2); TRIGLYCERIDES LEVEL 120 MG/DL (<150)
[2022-02-09 20:40] LABS: FREE T4 0.96 NG/DL (0.89-1.76)
== END ==
LOC: M SFHCCLAY 09:29
PROVIDERS: ATTEND Family Medicine
DX: J45.40 Moderate persistent asthma, uncomplicated (principal); I10 Essential (primary) hypertension; E11.9 Type 2 diabetes mellitus without complications; G47.33 Obstructive sleep apnea (adult) (pediatric); N52.9 Male erectile dysfunction, unspecified

== ENCOUNTER → 2022-02-09 | Outpatient (CLI) | payer MEDICARE | LOC: M CLY 09:53 | PROVIDERS: ATTEND Family Medicine | DX: J45.40 Moderate persistent asthma, uncomplicated (principal) ==

== ENCOUNTER → 2022-03-14 | Outpatient (CLI) | payer MEDICARE | LOC: M CARPUL 09:33 | PROVIDERS: ATTEND Family Medicine | DX: J45.40 Moderate persistent asthma, uncomplicated (principal) ==

== ENCOUNTER → 2022-04-20 | Outpatient (REF) | payer MEDICARE ==
[2022-04-20 11:54] LABS: BASO # 0.1 10^3/uL (0.0-0.2); BASO % 1.1 % (0.0-1.0); EOS # 0.5 10^3/uL (0.0-0.5); EOS % 7.6 % (0.0-3.0); HEMATOCRIT 45.7 % (42.0-52.0); HEMOGLOBIN 15.8 g/dl (13.5-17.5); LYMPH # 2.4 10^3/uL (1.5-5.0); LYMPH % 36.2 % (24.0-44.0); MEAN CORPUSCULAR HEMOGLOBIN 33.3 pg (27.0-33.0); MEAN CORPUSCULAR HGB CONC 34.6 g/dl (32.0-36.5); MEAN CORPUSCULAR VOLUME 96.2 fl (80.0-96.0); MONO # 0.7 10^3/uL (0.0-0.8); MONO % 10.6 % (2.0-8.0); NEUTROPHILS # 2.9 10^3/uL (1.5-8.5); PLATELET COUNT, AUTOMATED 155 10^3/uL (150-450); RED BLOOD COUNT 4.75 10^6/uL (4.30-6.10); WHITE BLOOD COUNT 6.5 10^3/uL (4.0-10.0)
[2022-04-20 12:03] LABS: BLOOD UREA NITROGEN 16 MG/DL (9-23); CALCIUM LEVEL 9.3 MG/DL (8.3-10.6); CARBON DIOXIDE LEVEL 34 MMOL/L (20-31); CHLORIDE LEVEL 99 MMOL/L (98-107); CREATININE FOR GFR 0.91 MG/DL (0.70-1.30); GLOMERULAR FILTRATION RATE > 60.0 (>42); GLUCOSE, FASTING 118 MG/DL (74-106); POTASSIUM SERUM 3.6 MMOL/L (3.5-5.1); SODIUM LEVEL 139 MMOL/L (136-145)
== END ==
LOC: M LABDRAWC 11:16
PROVIDERS: ATTEND Internal Medicine Cardiovascular Disease
DX: I47.29 Other ventricular tachycardia (principal)

== ENCOUNTER → 2022-05-08 | Outpatient (REF) | payer MEDICARE ==
[2022-05-08 11:36] LABS: BASO # 0.1 10^3/uL (0.0-0.2); BASO % 0.8 % (0.0-1.0); EOS # 0.4 10^3/uL (0.0-0.5); EOS % 4.4 % (0.0-3.0); HEMATOCRIT 47.1 % (42.0-52.0); HEMOGLOBIN 15.8 g/dl (13.5-17.5); LYMPH # 1.9 10^3/uL (1.5-5.0); LYMPH % 19.9 % (24.0-44.0); MEAN CORPUSCULAR HEMOGLOBIN 32.8 pg (27.0-33.0); MEAN CORPUSCULAR HGB CONC 33.5 g/dl (32.0-36.5); MEAN CORPUSCULAR VOLUME 97.7 fl (80.0-96.0); MONO # 0.9 10^3/uL (0.0-0.8); MONO % 9.3 % (2.0-8.0); NEUTROPHILS # 6.3 10^3/uL (1.5-8.5); NEUTROPHILS % 65.3 % (36.0-66.0); PLATELET COUNT, AUTOMATED 197 10^3/uL (150-450); RED BLOOD COUNT 4.82 10^6/uL (4.30-6.10); WHITE BLOOD COUNT 9.6 10^3/uL (4.0-10.0)
[2022-05-08 12:14] LABS: ALBUMIN 3.6 G/DL (3.2-5.2); ALKALINE PHOSPHATASE 110 U/L (46-116); ALT/SGPT 26 U/L (7.0-40); AST/SGOT 30 U/L (<34); BILIRUBIN,TOTAL 0.9 MG/DL (0.3-1.2); BLOOD UREA NITROGEN 17 MG/DL (9-23); CALCIUM LEVEL 9.3 MG/DL (8.3-10.6); CARBON DIOXIDE LEVEL 32 MMOL/L (20-31); CHLORIDE LEVEL 102 MMOL/L (98-107); CREATININE FOR GFR 0.99 MG/DL (0.70-1.30); GLOMERULAR FILTRATION RATE > 60.0 (>42); GLUCOSE, FASTING 111 MG/DL (74-106); POTASSIUM SERUM 4.5 MMOL/L (3.5-5.1); SODIUM LEVEL 139 MMOL/L (136-145); TOTAL PROTEIN 6.6 G/DL (5.7-8.2)
== END ==
LOC: M LABDRAWC 11:10
PROVIDERS: ATTEND Nurse Practitioner Family
DX: I25.10 Atherosclerotic heart disease of native coronary artery without angina pectoris (principal); E78.00 Pure hypercholesterolemia, unspecified

== ENCOUNTER → 2022-06-12 | Outpatient (REF) | payer MEDICARE ==
[2022-06-12 12:25] LABS: ALBUMIN 3.8 G/DL (3.2-5.2); ALKALINE PHOSPHATASE 96 U/L (46-116); ALT/SGPT 30 U/L (7.0-40); AST/SGOT 29 U/L (<34); BILIRUBIN,TOTAL 1.1 MG/DL (0.3-1.2); BLOOD UREA NITROGEN 13 MG/DL (9-23); CALCIUM LEVEL 8.9 MG/DL (8.3-10.6); CARBON DIOXIDE LEVEL 32 MMOL/L (20-31); CHLORIDE LEVEL 103 MMOL/L (98-107); CHOLESTEROL LEVEL 124 MG/DL (<200); CHOLESTEROL RISK RATIO 2.94 (<5); CREATININE FOR GFR 0.91 MG/DL (0.70-1.30); FREE T4 0.97 NG/DL (0.89-1.76); GLOMERULAR FILTRATION RATE > 60.0 (>42); GLUCOSE, FASTING 108 MG/DL (74-106); HDL CHOLESTEROL 42.1 MG/DL (>40); LDL CHOLESTEROL 57.1 MG/DL (<100); NON-HDL-C 81.9 MG/DL; POTASSIUM SERUM 3.9 MMOL/L (3.5-5.1); SODIUM LEVEL 137 MMOL/L (136-145); THYROID STIMULATING HORMONE 4.562 uIU/ML (0.55-4.78); TOTAL PROTEIN 6.3 G/DL (5.7-8.2); TRIGLYCERIDES LEVEL 124 MG/DL (<150)
[2022-06-12 12:28] LABS: BASO # 0.1 10^3/uL (0.0-0.2); BASO % 1.1 % (0.0-1.0); EOS # 0.4 10^3/uL (0.0-0.5); EOS % 6.3 % (0.0-3.0); HEMATOCRIT 45.8 % (42.0-52.0); HEMOGLOBIN 15.6 g/dl (13.5-17.5); LYMPH # 2.1 10^3/uL (1.5-5.0); LYMPH % 33.3 % (24.0-44.0); MEAN CORPUSCULAR HEMOGLOBIN 32.4 pg (27.0-33.0); MEAN CORPUSCULAR HGB CONC 34.1 g/dl (32.0-36.5); MEAN CORPUSCULAR VOLUME 95.2 fl (80.0-96.0); MONO # 0.6 10^3/uL (0.0-0.8); MONO % 9.9 % (2.0-8.0); NEUTROPHILS # 3.1 10^3/uL (1.5-8.5); NEUTROPHILS % 49.2 % (36.0-66.0); PLATELET COUNT, AUTOMATED 193 10^3/uL (150-450); RED BLOOD COUNT 4.81 10^6/uL (4.30-6.10); WHITE BLOOD COUNT 6.4 10^3/uL (4.0-10.0)
== END ==
LOC: M SFHCCLAY 08:23
PROVIDERS: ATTEND Family Medicine
DX: J45.40 Moderate persistent asthma, uncomplicated (principal); I10 Essential (primary) hypertension; E11.9 Type 2 diabetes mellitus without complications; G47.33 Obstructive sleep apnea (adult) (pediatric); N52.9 Male erectile dysfunction, unspecified

== ENCOUNTER → 2022-08-29 | Outpatient (REF) | payer MEDICARE ==
[~2022-08-29] MED LIST changes: -LOSA100T45; -LOSA100T45 PO; +LOSA100T46; +LOSA100T46 PO
[2022-08-29 12:21] LABS: BASO # 0.1 10^3/uL (0.0-0.2); BASO % 0.9 % (0.0-1.0); EOS # 0.3 10^3/uL (0.0-0.5); EOS % 3.7 % (0.0-3.0); HEMATOCRIT 45.7 % (42.0-52.0); HEMOGLOBIN 15.4 g/dl (13.5-17.5); LYMPH # 2.6 10^3/uL (1.5-5.0); LYMPH % 32.2 % (24.0-44.0); MEAN CORPUSCULAR HEMOGLOBIN 32.8 pg (27.0-33.0); MEAN CORPUSCULAR HGB CONC 33.7 g/dl (32.0-36.5); MEAN CORPUSCULAR VOLUME 97.4 fl (80.0-96.0); MONO # 0.7 10^3/uL (0.0-0.8); MONO % 8.7 % (2.0-8.0); NEUTROPHILS # 4.3 10^3/uL (1.5-8.5); NEUTROPHILS % 54.1 % (36.0-66.0); PLATELET COUNT, AUTOMATED 172 10^3/uL (150-450); RED BLOOD COUNT 4.69 10^6/uL (4.30-6.10); WHITE BLOOD COUNT 7.9 10^3/uL (4.0-10.0)
[2022-08-29 12:42] LABS: BLOOD UREA NITROGEN 23 MG/DL (9-23); CALCIUM LEVEL 9.5 MG/DL (8.3-10.6); CARBON DIOXIDE LEVEL 30 MMOL/L (20-31); CHLORIDE LEVEL 102 MMOL/L (98-107); CREATININE FOR GFR 0.89 MG/DL (0.70-1.30); GLOMERULAR FILTRATION RATE > 60.0 (>42); GLUCOSE, FASTING 99 MG/DL (74-106); POTASSIUM SERUM 3.8 MMOL/L (3.5-5.1); SODIUM LEVEL 139 MMOL/L (136-145)
== END ==
LOC: M LABDRAWC 11:01
PROVIDERS: ATTEND Nurse Practitioner Family
DX: R06.02 Shortness of breath (principal)

== ENCOUNTER → 2022-09-19 | Outpatient (REF) | payer MEDICARE ==
[2022-09-19 12:06] LABS: BLOOD UREA NITROGEN 20 MG/DL (9-23); CALCIUM LEVEL 8.9 MG/DL (8.3-10.6); CARBON DIOXIDE LEVEL 26 MMOL/L (20-31); CHLORIDE LEVEL 104 MMOL/L (98-107); CREATININE FOR GFR 0.85 MG/DL (0.70-1.30); GLOMERULAR FILTRATION RATE > 60.0 (>42); GLUCOSE, FASTING 124 MG/DL (74-106); POTASSIUM SERUM 4.9 MMOL/L (3.5-5.1); SODIUM LEVEL 139 MMOL/L (136-145)
== END ==
LOC: M LABDRAWC 10:58
PROVIDERS: ATTEND Internal Medicine Cardiovascular Disease
DX: R06.02 Shortness of breath (principal); I25.10 Atherosclerotic heart disease of native coronary artery without angina pectoris

== ENCOUNTER → 2022-10-09 | Outpatient (REF) | payer MEDICARE ==
[2022-10-09 12:06] LABS: HEMATOCRIT 44.1 % (42.0-52.0); HEMOGLOBIN 14.9 g/dl (13.5-17.5); MEAN CORPUSCULAR HEMOGLOBIN 33.7 pg (27.0-33.0); MEAN CORPUSCULAR HGB CONC 33.8 g/dl (32.0-36.5); MEAN CORPUSCULAR VOLUME 99.8 fl (80.0-96.0); PLATELET COUNT, AUTOMATED 168 10^3/uL (150-450); RED BLOOD COUNT 4.42 10^6/uL (4.30-6.10); WHITE BLOOD COUNT 6.8 10^3/uL (4.0-10.0)
[2022-10-09 12:08] LABS: BLOOD UREA NITROGEN 19 MG/DL (9-23); CALCIUM LEVEL 9.2 MG/DL (8.3-10.6); CARBON DIOXIDE LEVEL 29 MMOL/L (20-31); CHLORIDE LEVEL 106 MMOL/L (98-107); CREATININE FOR GFR 0.96 MG/DL (0.70-1.30); GLOMERULAR FILTRATION RATE > 60.0 (>42); GLUCOSE, FASTING 107 MG/DL (74-106); SODIUM LEVEL 142 MMOL/L (136-145)
== END ==
LOC: M LABDRAWC 11:12
PROVIDERS: ATTEND Nurse Practitioner Family
DX: I25.10 Atherosclerotic heart disease of native coronary artery without angina pectoris (principal)

== ENCOUNTER → 2023-06-11 | Outpatient (REF) | payer MEDICARE | LOC: M SFHCCLAY 16:42 | PROVIDERS: ATTEND Physician Assistant | DX: L72.3 Sebaceous cyst (principal) ==

== ENCOUNTER → 2023-06-11 | Outpatient (CLI) | payer MEDICARE | LOC: M CLY 08:38 | PROVIDERS: ATTEND Physician Assistant | DX: M25.552 Pain in left hip (principal); M17.11 Unilateral primary osteoarthritis, right knee; M25.461 Effusion, right knee ==

== ENCOUNTER → 2023-06-25 | Outpatient (REF) | payer MEDICARE | LOC: M SFHCCLAY 14:52 | PROVIDERS: ATTEND Family Medicine | DX: M70.41 Prepatellar bursitis, right knee (principal); M25.561 Pain in right knee ==

== ENCOUNTER → 2023-11-13 | Outpatient (CLI) | payer MEDICARE ==
[~2023-11-13] MED LIST changes: -ETOD-173; +ETOD-234
== END ==
LOC: M WHC 09:58
PROVIDERS: ATTEND Nurse Practitioner Family
DX: N63.10 Unspecified lump in the right breast, unspecified quadrant (principal); N62 Hypertrophy of breast

== ENCOUNTER → 2023-11-26 | Outpatient (CLI) | payer MEDICARE | LOC: M CLY 14:51 | PROVIDERS: ATTEND Physician Assistant | DX: M19.011 Primary osteoarthritis, right shoulder (principal) ==

== ENCOUNTER → 2023-12-26 | Outpatient (REF) | payer MEDICARE ==
[2023-12-26 12:12] LABS: APPEARANCE, URINE CLEAR (CLEAR); BACTERIA, URINE AUTO NEGATIVE (NEGATIVE); BILIRUBIN, URINE AUTO NEGATIVE (NEGATIVE); BLOOD, URINE BLOOD NEGATIVE (NEGATIVE); COLOR, URINE YELLOW (YELLOW); GLUCOSE, URINE (UA) AUTO NEGATIVE (NEGATIVE); KETONE, URINE AUTO NEGATIVE (NEGATIVE); LEUKOCYTE ESTERASE, URINE AUTO NEGATIVE (NEGATIVE); MUCUS, URINE SMALL (NEGATIVE); NITRITE, URINE AUTO NEGATIVE (NEGATIVE); PROTEIN, URINE AUTO NEGATIVE (NEGATIVE); RBC, URINE AUTO 0 /HPF (0-3); SPECIFIC GRAVITY URINE AUTO 1.014 (1.002-1.035); SQUAMOUS EPITHELIAL CELL UR AU 0 /HPF (0-6); UROBILINOGEN, URINE AUTO 0.2 mg/dL (0.0-2.0); WBC, URINE AUTO 1 /HPF (0-3)
[2023-12-26 12:27] LABS: HEMATOCRIT 47.6 % (42.0-52.0); HEMOGLOBIN 16.1 g/dl (13.5-17.5); MEAN CORPUSCULAR HEMOGLOBIN 33.8 pg (27.0-33.0); MEAN CORPUSCULAR HGB CONC 33.8 g/dl (32.0-36.5); MEAN CORPUSCULAR VOLUME 99.8 fl (80.0-96.0); PLATELET COUNT, AUTOMATED 168 10^3/uL (150-450); RED BLOOD COUNT 4.77 10^6/uL (4.30-6.10); WHITE BLOOD COUNT 6.9 10^3/uL (4.0-10.0)
[2023-12-26 12:43] LABS: HEMOGLOBIN A1c 5.4 % (4.0-6.0)
[2023-12-26 12:55] LABS: ALBUMIN 3.8 G/DL (3.2-5.2); ALKALINE PHOSPHATASE 83 U/L (46-116); ALT/SGPT 24 U/L (7.0-40); AST/SGOT 21 U/L (<34); BILIRUBIN,TOTAL 0.8 MG/DL (0.3-1.2); BLOOD UREA NITROGEN 22 MG/DL (9-23); CALCIUM LEVEL 9.5 MG/DL (8.3-10.6); CARBON DIOXIDE LEVEL 31 MMOL/L (20-31); CHLORIDE LEVEL 106 MMOL/L (98-107); CHOLESTEROL LEVEL 250 MG/DL (<200); CHOLESTEROL RISK RATIO 4.23 (<5); CREATININE FOR GFR 0.94 MG/DL (0.70-1.30); GLOMERULAR FILTRATION RATE > 60.0 (>42); GLUCOSE, FASTING 111 MG/DL (74-106); LDL CHOLESTEROL 146.4 MG/DL (<100); POTASSIUM SERUM 4.9 MMOL/L (3.5-5.1); SODIUM LEVEL 140 MMOL/L (136-145); TOTAL PROTEIN 6.7 G/DL (5.7-8.2); TRIGLYCERIDES LEVEL 223 MG/DL (<150)
== END ==
LOC: M SFHCCLAY 07:48
PROVIDERS: ATTEND Family Medicine
DX: I10 Essential (primary) hypertension (principal); E11.9 Type 2 diabetes mellitus without complications

== ENCOUNTER → 2024-03-31 | Outpatient (REF) | payer MEDICARE | LOC: M SFHCPLAZ 10:03 | PROVIDERS: ATTEND Student in an Organized Health Care Education/Training Program | DX: Z76.89 Persons encountering health services in other specified circumstances (principal); I10 Essential (primary) hypertension; Z13.220 Encounter for screening for lipoid disorders; E11.9 Type 2 diabetes mellitus without complications ==

== ENCOUNTER → 2024-04-13 | Outpatient (REF) | payer MEDICARE ==
[2024-04-13 13:25] LABS: BASO % 0.3 % (0.0-1.0); EOS # 0.1 10^3/uL (0.0-0.5); EOS % 0.9 % (0.0-3.0); HEMATOCRIT 45.2 % (42.0-52.0); HEMOGLOBIN 15.5 g/dl (13.5-17.5); LYMPH # 1.8 10^3/uL (1.5-5.0); LYMPH % 17.3 % (24.0-44.0); MEAN CORPUSCULAR HEMOGLOBIN 34.6 pg (27.0-33.0); MEAN CORPUSCULAR HGB CONC 34.3 g/dl (32.0-36.5); MEAN CORPUSCULAR VOLUME 100.9 fl (80.0-96.0); MONO % 9.6 % (2.0-8.0); NEUTROPHILS # 7.3 10^3/uL (1.5-8.5); NEUTROPHILS % 70.9 % (36.0-66.0); PLATELET COUNT, AUTOMATED 176 10^3/uL (150-450); RED BLOOD COUNT 4.48 10^6/uL (4.30-6.10); WHITE BLOOD COUNT 10.3 10^3/uL (4.0-10.0)
[2024-04-13 13:42] LABS: HEMOGLOBIN A1c 5.2 % (4.0-6.0)
[2024-04-13 13:46] LABS: CREATININE, URINE 64.4 MG/DL
[2024-04-13 13:47] LABS: MALB URINE SIEMENS < 3.0 MG/L
[2024-04-13 13:48] LABS: ALBUMIN 3.6 G/DL (3.2-5.2); ALKALINE PHOSPHATASE 84 U/L (40-129); ALT/SGPT 66 U/L (7.0-40); AST/SGOT 26 U/L (<34); BLOOD UREA NITROGEN 24 MG/DL (9-23); CALCIUM LEVEL 9.4 MG/DL (8.3-10.6); CARBON DIOXIDE LEVEL 31 MMOL/L (20-31); CHLORIDE LEVEL 105 MMOL/L (98-107); CHOLESTEROL LEVEL 142 MG/DL (<200); CHOLESTEROL RISK RATIO 2.57 (<5); CREATININE FOR GFR 0.96 MG/DL (0.70-1.30); GLOMERULAR FILTRATION RATE > 60.0 (>42); GLUCOSE, FASTING 111 MG/DL (74-106); HDL CHOLESTEROL 55.2 MG/DL (>40); LDL CHOLESTEROL 70.2 MG/DL (<100); NON-HDL-C 86.8 MG/DL; POTASSIUM SERUM 5.1 MMOL/L (3.5-5.1); SODIUM LEVEL 141 MMOL/L (136-145); TOTAL PROTEIN 6.6 G/DL (5.7-8.2); TRIGLYCERIDES LEVEL 83 MG/DL (<150)
[2024-04-13 13:50] LABS: THYROID STIMULATING HORMONE 3.494 uIU/ML (0.55-4.78)
[2024-04-13 13:51] LABS: FREE T4 1.37 NG/DL (0.89-1.76)
== END ==
LOC: M SFHCPLAZ 07:48
PROVIDERS: ATTEND Student in an Organized Health Care Education/Training Program
DX: Z76.89 Persons encountering health services in other specified circumstances (principal); I10 Essential (primary) hypertension; Z13.220 Encounter for screening for lipoid disorders; E11.9 Type 2 diabetes mellitus without complications

== ENCOUNTER → 2024-06-30 | Outpatient (REF) | payer MEDICARE ==
[2024-06-30 19:10] LABS: ALBUMIN 3.8 G/DL (3.2-5.2); BASO # 0.1 10^3/uL (0.0-0.2); BASO % 0.7 % (0.0-1.0); BILIRUBIN,TOTAL 0.9 MG/DL (0.3-1.2); CALCIUM LEVEL 9.3 MG/DL (8.3-10.6); CREATININE FOR GFR 0.92 MG/DL (0.70-1.30); EOS # 0.2 10^3/uL (0.0-0.5); EOS % 2.7 % (0.0-3.0); GLOMERULAR FILTRATION RATE 85.1 (>42); HEMATOCRIT 44.3 % (42.0-52.0); HEMOGLOBIN 14.9 g/dl (13.5-17.5); LYMPH # 2.1 10^3/uL (1.5-5.0); LYMPH % 23.8 % (24.0-44.0); MEAN CORPUSCULAR HEMOGLOBIN 32.9 pg (27.0-33.0); MEAN CORPUSCULAR HGB CONC 33.6 g/dl (32.0-36.5); MEAN CORPUSCULAR VOLUME 97.8 fl (80.0-96.0); MONO # 0.8 10^3/uL (0.0-0.8); MONO % 9.3 % (2.0-8.0); NEUTROPHILS # 5.6 10^3/uL (1.5-8.5); PLATELET COUNT, AUTOMATED 231 10^3/uL (150-450); POTASSIUM SERUM 4.8 MMOL/L (3.5-5.1); RED BLOOD COUNT 4.53 10^6/uL (4.30-6.10); TOTAL PROTEIN 6.6 G/DL (5.7-8.2); WHITE BLOOD COUNT 8.8 10^3/uL (4.0-10.0)
[2024-06-30 19:25] LABS: HEMOGLOBIN A1c 4.9 % (4.0-6.0)
== END ==
LOC: M SFHCPLAZ 14:32
PROVIDERS: ATTEND Student in an Organized Health Care Education/Training Program
DX: Z79.899 Other long term (current) drug therapy (principal)

== ENCOUNTER 2025-01-21 06:56 | Day surgery (SDC) | payer MEDICARE ==
[~2025-01-21] VITALS: Ht 167.6 cm; Wt 97.4 kg
[~2025-01-21 06:56] MED LIST changes: +CLOP75TA99 PO; -PRAV20TA2 PO; +PRAV20TA78 PO; +PROA1AER2 IN; +SEMA2PEN SQ; +SPIR-10 PO; +VITA400C80 PO
[2025-01-21] MEDS ORDERED: LIDOCAINE 2% 100 MG/5 ML SDV (FOR ANES.) As Ordered ONE (07:15)
[2025-01-21] MEDS ORDERED: GLYCOPYRROLATE INJ 0.2 MG/ML 2 ML VIAL As Ordered ONE (07:42)
[2025-01-21] MEDS ORDERED: PHENYLephrine 500MCG 5ML (100MCG/ML) SYRINGE As Ordered ONE (08:01)
[2025-01-21 08:21] VITALS: TEMP 97.7
[2025-01-21 08:48] VITALS: BP 112/70; O2SAT 95
== END 2025-01-21 08:54 | disposition home or self-care (01) ==
LOC: M OPP 06:56
PROVIDERS: ATTEND Surgery
DX: K63.5 Polyp of colon (principal); K57.30 Diverticulosis of large intestine without perforation or abscess without bleeding; Z86.0100 Personal history of colon polyps, unspecified; I48.91 Unspecified atrial fibrillation; G47.30 Sleep apnea, unspecified; Z95.5 Presence of coronary angioplasty implant and graft; Z79.82 Long term (current) use of aspirin; Z79.85 Long-term (current) use of injectable non-insulin antidiabetic drugs; Z79.02 Long term (current) use of antithrombotics/antiplatelets; Z79.899 Other long term (current) drug therapy; J45.909 Unspecified asthma, uncomplicated
CPT/HCPCS: 45385; 88305; J1596; J2371